=== PATIENT | male | born 1970 | race African-American/Black ===

== ENCOUNTER 2017-01-29 07:33 | Inpatient (IN) | payer OTHER ==
[~2017-01-29] VITALS: Ht 188 cm; Wt 89.4 kg
--- NOTE | 2017-01-29 07:50 | NUR ---
LAC #20 IV ACCESS BLOOD SAMPLE COLLECTED SENT TO LAB
[2017-01-29] MEDS ORDERED: MORPHINE SULFATE INJ 4 MG/ML DISP.SYRIN ONE (07:54)
[2017-01-29 08:00] LABS: BASOPHILS # (AUTO) 0.1 /CMM (0.0-0.2); BASOPHILS % (AUTO) 1.2 % (0.0-2.0); HEMATOCRIT 33 % (39-51); HEMOGLOBIN 10.6 g/dL (13.5-17.5); LYMPHOCYTES % (AUTO) 20.5 % (20.0-44.0); MEAN CORPUSCULAR HEMOGLOBIN 27 PG (26.0-33.0); MEAN CORPUSCULAR HGB CONC 32 g/dl (31.0-36.0); MEAN CORPUSCULAR VOLUME 84 fL (80-96); MONOCYTES # (AUTO) 0.7 /CMM (0.1-1.30); MONOCYTES % (AUTO) 13.2 % (2.0-12.0); NEUTROPHILS # (AUTO) 3.3 /CMM (1.8-8.9); NEUTROPHILS % (AUTO) 64.1 % (43.0-81.0); PLATELET COUNT (AUTO) 244 /CMM (150-450); RED BLOOD CELL COUNT(AUTO) 3.93 MIL/uL (4.5-6.0); WHITE BLOOD COUNT (AUTO) 5.1 K/uL (4.3-11.0)
[2017-01-29] MEDS ORDERED: diphenhydrAMINE HCL 50 MG/ML VIAL IV ONE (08:00)
[2017-01-29] MEDS ORDERED: MORPHINE SULFATE INJ 2 MG/ML DISP.SYRIN IV ONE (08:00)
--- NOTE | 2017-01-29 08:00 | NUR ---
WIND TURBINE SHEET METAL WORKER AT BEDSIDE FOR EVAL
[2017-01-29] MEDS ORDERED: diphenhydrAMINE HCL 50 MG/ML VIAL ONE (08:03)
[2017-01-29 08:10] LABS: CALCIUM, SERUM 8.2 mg/dL (8.5-10.1); CREATININE 0.8 mg/dL (0.6-1.3); POTASSIUM 3.9 mmol/L (3.5-5.1)
[2017-01-29 08:17] LABS: TROPONIN I 0.023 ng/mL (0.00-0.056)
[2017-01-29 08:23] LABS: ALBUMIN 3.2 g/dL (3.4-5.0); BILIRUBIN,DIRECT 0.3 mg/dL (0.0-0.2); BILIRUBIN,TOTAL 0.8 mg/dL (0.2-1.0); TOTAL PROTEIN, SERUM 6.8 g/dL (6.4-8.2)
[2017-01-29 08:40] LABS: INR 1.17 (0.87-1.13); PROTHROMBIN TIME 12.6 SECS (9.5-12.7)
[2017-01-29] MEDS ORDERED: ASPIRIN 325 MG TABLET PO ONE (09:00)
[2017-01-29] MEDS ORDERED: NITROGLYCERIN PACKET 1 GM PACKET TD ONE (09:00)
[2017-01-29] MEDS ORDERED: FUROSEMIDE 40 MG/4 ML VIAL IV ONE (09:00)
[2017-01-29] MEDS ORDERED: FUROSEMIDE 40 MG/4 ML VIAL ONE ×2 (09:02→20:58)
[2017-01-29] MEDS ORDERED: NITROGLYCERIN PACKET 1 GM PACKET ONE (09:03)
[2017-01-29] MEDS ORDERED: ASPIRIN 325 MG TABLET ONE (09:03)
--- NOTE | 2017-01-29 09:04 | NUR ---
[facility] mortgage loan computation clerk Hospitalist called - Dr. Rivas
[2017-01-29] MEDS ORDERED: ALBU18HF2 INH (09:07)
[2017-01-29] MEDS ORDERED: CARV12.52 PO (09:07)
[2017-01-29] MEDS ORDERED: SPIR25TA PO (09:07)
[2017-01-29] MEDS ORDERED: ATOR40TA PO (09:07)
[2017-01-29] MEDS ORDERED: FURO40TA5 PO (09:07)
[2017-01-29] MEDS ORDERED: LISI-603 PO (09:07)
[2017-01-29] MEDS ORDERED: ASPI-991 PO (09:07)
--- NOTE | 2017-01-29 09:25 | NUR ---
admitted to the tele floor ; accepted by Dr. Rivas.
[2017-01-29 10:30] VITALS: BP 138/80
[2017-01-29] MEDS: ASPIRIN EC 81 MG TABLET.DR PO SCH (10:30)
--- NOTE | 2017-01-29 10:42 | NUR ---
ASPIRIN DOSE WAS NOT GIVEN BECAUSE OF PREVIOUS DOSE GIVEN IN THE ER.
[2017-01-29 10:51] LABS: THYROID STIMULATING HORMONE 1.365 uIU/mL (0.358-3.74)
[2017-01-29 11:04] LABS: MAGNESIUM 1.7 mg/dL (1.8-2.4); PHOSPHORUS 3.6 mg/dL (2.5-4.9)
[2017-01-29 12:00] VITALS: BP 134/84
[2017-01-29] MEDS: LISINOPRIL (20MG) 20 MG TABLET PO SCH (12:06)
[2017-01-29] MEDS: POTASSIUM CHLORIDE 20 MEQ TAB.PRT.SR PO SCH ×3 (12:07→14:07)
[2017-01-29] MEDS: FUROSEMIDE 40 MG/4 ML VIAL IV SCH ×3 (13:13→21:03)
[2017-01-29] MEDS ORDERED: ALBUTEROL FS 2.5 MG/3 ML VIAL.NEB NEB PRN (13:30)
--- NOTE | 2017-01-29 14:18 | NUR ---
OK TO SHOWER PER DR. TIRADO. LEADS OFF, SHOWER PROVIDED.
[2017-01-29] MEDS: Magnesium 1GM/D5W 100ML PREMIX 100 ML IV SCH ×2 (15:45→17:12)
[2017-01-29 16:00] VITALS: BP 124/90
[2017-01-29] MEDS: CARVEDILOL 12.5 MG TABLET PO SCH (17:12)
--- NOTE | 2017-01-29 18:33 | NUR ---
PT IS SLEEPING IN BED, NASAL CANNULA ON @2L, SATING AT 98. IV ON RFA INTACT AND PATENT. ALL MEDS GIVEN ORDERED. BED IS IN LOW AND LOCKED POSITION, SIDE RAILS UP X2, AND CALL LIGHT IS IN REACH. WILL ENDORSE TO SENIOR MAJOR GIFTS OFFICER RN FOR CONTINUITY OF CARE.
--- NOTE | 2017-01-29 19:50 | NUR ---
NURSING COORDINATOR NOTE: PATIENT RESTING IN BED, NO ACUTE DISTRESS NOTED. BREATHING EVEN AND UNLABORED, NO SOB NOTED. TELE READING SR 90. IV TO RFA IN PLACE. BED LOCKED AND IN LOWEST POSITION, CALL LIGHT IN REACH. WILL CONTINUE TO MONITOR.
[2017-01-29 20:00] VITALS: BP 122/84
[2017-01-29] MEDS ORDERED: MORPHINE SULFATE INJ 2 MG/ML DISP.SYRIN ONE (20:59)
[2017-01-29] MEDS: MORPHINE SULFATE INJ 2 MG/ML DISP.SYRIN IV PRN (21:04)
--- NOTE | 2017-01-29 21:30 | NUR ---
ELECTRONICS REPAIR TECHNICIAN NOTE: PATIENT LAST DOSE OF LASIX 4OMG IV GIVEN PER MD ORDER. PATIENT ALSO COMPLAINS OF PAIN TO RIGHT HAND 8/10, MORPHINE 2MG IV GIVEN PER MD ORDER. WILL CONTINUE TO MONITOR.
[2017-01-29] MEDS: ATORVASTATIN 40 MG TABLET PO SCH (21:34)
[2017-01-30] MEDS ORDERED: MORPHINE SULFATE INJ 2 MG/ML DISP.SYRIN ONE ×2 (01:30→06:26)
[2017-01-30] MEDS: MORPHINE SULFATE INJ 2 MG/ML DISP.SYRIN IV PRN ×4 (01:36→16:37)
--- NOTE | 2017-01-30 01:45 | NUR ---
GRAIN COMBINER NOTE: PATIENT COMPLAINS OF PAIN TO RIGHT HAND 8/10, MORPHINE 2MG IV GIVEN PER MD ORDER. WILL CONTINUE TO MONITOR.
[2017-01-30 04:45] VITALS: BP 121/77
--- NOTE | 2017-01-30 06:14 | NUR ---
COUNTY SURVEYOR NOTE: PATIENT RESTING IN BED, NO ACUTE DISTRESS NOTED. BREATHING EVEN AND UNLABORED, NO SOB NOTED. TELE READING SR 88. IV TO RFA IN PLACE. BED LOCKED AND IN LOWEST POSITION, CALL LIGHT IN REACH. WILL ENDORSE TO DAY NURSE TO CONTINUE WITH PLAN OF CARE.
--- NOTE | 2017-01-30 06:30 | NUR ---
ROOFING FOREMAN NOTE: PATIENT COMPLAINS OF PAIN TO RIGHT HAND 8/10, MORPHINE 2MG IV GIVEN PER MD ORDER. WILL CONTINUE TO MONITOR.
[2017-01-30 06:39] LABS: EOSINOPHILS # (AUTO) 0.1 /CMM (0.0-0.7); EOSINOPHILS % (AUTO) 1.1 % (0.0-6.0); HEMATOCRIT 34 % (39-51); HEMOGLOBIN 11.1 g/dL (13.5-17.5); LYMPHOCYTES # (AUTO) 1.1 /CMM (0.8-4.8); LYMPHOCYTES % (AUTO) 21.9 % (20.0-44.0); MEAN CORPUSCULAR HEMOGLOBIN 28 PG (26.0-33.0); MEAN CORPUSCULAR HGB CONC 33 g/dl (31.0-36.0); MEAN CORPUSCULAR VOLUME 86 fL (80-96); MONOCYTES # (AUTO) 0.7 /CMM (0.1-1.30); MONOCYTES % (AUTO) 15.5 % (2.0-12.0); NEUTROPHILS # (AUTO) 2.9 /CMM (1.8-8.9); NEUTROPHILS % (AUTO) 60.5 % (43.0-81.0); PLATELET COUNT (AUTO) 254 /CMM (150-450); RDW COEFFICIENT OF VARIATION 20.5 (11.5-15.0); RED BLOOD CELL COUNT(AUTO) 3.98 MIL/uL (4.5-6.0); WHITE BLOOD COUNT (AUTO) 4.8 K/uL (4.3-11.0)
[2017-01-30 07:01] LABS: TROPONIN I 0.026 ng/mL (0.00-0.056)
[2017-01-30 07:03] VITALS: BP 132/74
--- NOTE | 2017-01-30 07:10 | NUR ---
RECEIVED PT IN BED, SLEEPING INTERMITTENTLY. PT IS CONNECTED TO NASAL CANNULA AT 2 L, NO SOB. SAFETY MEASURES ARE MET. WILL CONTINUE TO MONITOR.
[2017-01-30 07:13] LABS: ALBUMIN 3.2 g/dL (3.4-5.0); BILIRUBIN,TOTAL 1.1 mg/dL (0.2-1.0); CALCIUM, SERUM 8.3 mg/dL (8.5-10.1); CREATININE 1.2 mg/dL (0.6-1.3); MAGNESIUM 1.7 mg/dL (1.8-2.4); PHOSPHORUS 3.6 mg/dL (2.5-4.9); POTASSIUM 3.9 mmol/L (3.5-5.1); TOTAL PROTEIN, SERUM 7.1 g/dL (6.4-8.2)
[2017-01-30 08:00] VITALS: BP 132/84
[2017-01-30] MEDS: CARVEDILOL 12.5 MG TABLET PO SCH ×2 (08:25→16:33)
[2017-01-30] MEDS: SPIRONOLACTONE 25 MG TABLET PO SCH (08:25)
[2017-01-30] MEDS: LISINOPRIL (20MG) 20 MG TABLET PO SCH (08:26)
[2017-01-30] MEDS: ASPIRIN EC 81 MG TABLET.DR PO SCH (08:51)
[2017-01-30] MEDS: risperiDONE 1 MG TABLET PO SCH ×2 (11:09→16:32)
[2017-01-30] MEDS ORDERED: Magnesium 1GM/D5W 100ML PREMIX 100 ML IV SCH (11:34)
[2017-01-30] MEDS: FUROSEMIDE 40 MG/4 ML VIAL IV SCH ×3 (12:00→20:00)
[2017-01-30] MEDS ORDERED: POTASSIUM CHLORIDE 20 MEQ TAB.PRT.SR PO SCH (12:00)
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
--- NOTE | 2017-01-30 12:38 | NUR ---
PT REFUSED LASIX MEDICATION. PT WAS INFORMED FOR THE PURPOSE AND BENEFIT OF TAKING LASIX AND STILL REFUSED. DR ROSSI, POWER AND RECOVERY SUPERVISOR WAS NOTIFIED.
[2017-01-30] MEDS: Magnesium 1GM/D5W 100ML PREMIX 100 ML IV SCH ×2 (12:54→13:05)
--- NOTE | 2017-01-30 13:06 | NUR ---
SECOND DOSE OF MAGNESIUM NOT GIVEN, DUPLICATE ORDER. FULL 200ML DOSE WAS GIVEN.
[2017-01-30 16:00] VITALS: BP 113/71
--- NOTE | 2017-01-30 19:30 | NUR ---
MS RN OPENING NOTES: PATIENT IN BED, AOX4, ON O2 AT 3 LPM VIA NC, BREATHING IS EVEN AND UNLABORED, NO WHEEZING OR CRACKLES HEARD ON AUSCULTATION, BUT GARRY LOWER LUNG WELLS ARE DIMINISHED. PIV OVER RFA G 20 INTACT AND PATENT TO FLUSH. PATIENT COMPLAINS OF GENERALIZED PAIN OVER WHOLE BACK AND KNEES, AND JOINTS OF HIS R HAND. EXPLAINED PAIN MEDS SCHEDULE. PROVIDED FOR COMFORT AND SAFETY. WILL CONT TO MONITOR.
--- NOTE | 2017-01-30 19:36 | NUR ---
PT IS SLEEPING INTERMITTENTLY IN BED. RESPIRATIONS EVEN AND UNLABORED. RFA IV INTACT AND PATENT. PT HAS NO COMPLAINTS OF PAIN. BED IS IN LOW AND LOCKED POSITION, SIDE RAILS UP X2, CALL LIGHT IS IN REACH. ENDORSED TO PSYCH RN RN FOR CONTINUITY OF CARE.
[2017-01-30 20:00] VITALS: BP 94/60
--- NOTE | 2017-01-30 20:30 | NUR ---
RN NOTES: PT'S BP IS 94/60, WILL NOT ADMINISTER SCHEDULED LASIX IV AT THIS TIME.
[2017-01-30 21:00] VITALS: BP 91/54
--- NOTE | 2017-01-30 21:02 | NUR ---
RN NOTES: PT'S BP RECHECKED AT 91/54, WILL NOT ADMINISTER SCHEDULED LASIX 40 MG IV SCHEDULED FOR 1999 PM AT THIS TIME.
--- NOTE | 2017-01-30 21:48 | NUR ---
RN NOTES: RECHECKED BP AT 90/54, HR: 84. PATIENT IS AOX4, ON O2 AT 3 LPM VIA NC. WILL CONT TO MONITOR.
[2017-01-30] MEDS: ATORVASTATIN 40 MG TABLET PO SCH (21:52)
[2017-01-31] VITALS: BP 101/61
[2017-01-31] MEDS: MORPHINE SULFATE INJ 2 MG/ML DISP.SYRIN IV PRN (00:10)
--- NOTE | 2017-01-31 00:17 | NUR ---
RN NOTES: PATIENT COMPLAINING OF 9/10 GENERALIZED PAIN OVER UPPER AND LOWER BACK AND ON GARRY KNEES AND JOINTS OF R HAND. RECHECKED BP AT 101/61, HR: 88. ADMINISTERED MORPHINE 2 MG IV AT THIS TIME. PROVIDED FOR COMFORT. WILL CONT TO MONITOR.
--- NOTE | 2017-01-31 05:07 | NUR ---
RN NOTES: PATIENT SHOWERED BY HIMSELF IN BATHROOM WITHOUT CALLING FOR HELP, AND ACCIDENTALLY PULLED OUT HIS IV. REINSERTED NEW IV LINE OVER R FOREARM, G22. ADVISED PATIENT THAT HE MUST CALL FOR ASSISTANCE NEXT TIME HE WANTS TO BATHE. PATIENT VERBALIZED UNDERSTANDING.
[2017-01-31 06:16] LABS: BASOPHILS % (AUTO) 0.7 % (0.0-2.0); EOSINOPHILS # (AUTO) 0.1 /CMM (0.0-0.7); EOSINOPHILS % (AUTO) 1.6 % (0.0-6.0); HEMATOCRIT 32 % (39-51); HEMOGLOBIN 10.3 g/dL (13.5-17.5); LYMPHOCYTES % (AUTO) 22.1 % (20.0-44.0); MEAN CORPUSCULAR HEMOGLOBIN 28 PG (26.0-33.0); MEAN CORPUSCULAR HGB CONC 32 g/dl (31.0-36.0); MEAN CORPUSCULAR VOLUME 85 fL (80-96); MONOCYTES # (AUTO) 0.6 /CMM (0.1-1.30); NEUTROPHILS # (AUTO) 2.8 /CMM (1.8-8.9); NEUTROPHILS % (AUTO) 62.6 % (43.0-81.0); PLATELET COUNT (AUTO) 212 /CMM (150-450); RDW COEFFICIENT OF VARIATION 20.3 (11.5-15.0); RED BLOOD CELL COUNT(AUTO) 3.74 MIL/uL (4.5-6.0); WHITE BLOOD COUNT (AUTO) 4.5 K/uL (4.3-11.0)
[2017-01-31 06:25] LABS: ALBUMIN 2.7 g/dL (3.4-5.0); BILIRUBIN,TOTAL 0.7 mg/dL (0.2-1.0); CALCIUM, SERUM 8.3 mg/dL (8.5-10.1); MAGNESIUM 1.7 mg/dL (1.8-2.4); PHOSPHORUS 3.6 mg/dL (2.5-4.9); POTASSIUM 4.1 mmol/L (3.5-5.1); TOTAL PROTEIN, SERUM 6.2 g/dL (6.4-8.2)
--- NOTE | 2017-01-31 06:46 | NUR ---
RN NOTES: PHOTOVOLTAIC INSTALLATION TECHNICIAN AT BEDSIDE TO TAKE CHEST XRAY.
--- NOTE | 2017-01-31 06:48 | NUR ---
MS RN CLOSING NOTES: PATIENT IN BED, AOX4, ON O2 AT 3 LPM VIA NC, BREATHING EVEN AND UNLABORED. PATIENT STILL COMPLAINS OF GENERALIZED PAIN OVER BACK SCALED AT 5/10. DUE MEDS GIVEN. PROVIDED FOR COMFORT AND SAFETY. NO ACUTE CHANGE IN CONDITION NOTED THROUGH SHIFT. WILL ENDORSE TO AM RN FOR CARY.
[2017-01-31 08:00] VITALS: BP 110/78
[2017-01-31] MEDS: ASPIRIN EC 81 MG TABLET.DR PO SCH (08:48)
[2017-01-31] MEDS: SPIRONOLACTONE 25 MG TABLET PO SCH (08:48)
[2017-01-31] MEDS: risperiDONE 1 MG TABLET PO SCH (08:48)
[2017-01-31] MEDS ORDERED: LISINOPRIL (10MG) 10 MG TABLET PO SCH (09:00)
[2017-01-31] MEDS ORDERED: CARVEDILOL 6.25 MG TABLET PO SCH (09:00)
[2017-01-31] MEDS ORDERED: FUROSEMIDE 40 MG/4 ML VIAL IV SCH (09:00)
[2017-01-31 09:01] VITALS: BP 118/80
[2017-01-31] MEDS: Magnesium 1GM/D5W 100ML PREMIX 100 ML IV SCH ×2 (09:04→10:54)
--- NOTE | 2017-01-31 09:43 | NUR ---
SHYAM reviewed and faxed clinicals to Intake at [facility] . SHYAM contacted [facility] and spoke to Lucy in intake informing her that SHYAM faxed clinicals. Lucy informed SHYAM she will review the clinicals and follow up with SHYAM.
--- NOTE | 2017-01-31 12:27 | NUR ---
RN Notes Spoke with patient together with psychotherapist social worker and explained to him that he is already discharge and stable medically to go home. He said he wants 4 tokens to reach to the red line. Informed him that 4 tokens will be provided and patient agreed. Also asked him if he feels hurting himself or other people and he said no. That he is feeling okay now. Patient able to communicate well. Appears calm and relax eating his lunch.
--- NOTE | 2017-01-31 13:05 | NUR ---
RN Notes Patient refused due med lasix 40 mg IVP. "I don't want it now because the bus won't stop if I want to pee. " Patient also insisted to go home at this time. Discharge instruction given on home medication and follow up with primary care physician in 1 week verbalized understanding. IV access removed and secured site with dressing. Prescription for home medication given to patient. Discharge paper signed. Refused body check for now. Belongings were accounted with patient and claimed nothing is missing. 4 tokens given. Informed CN Neyda patient does not want to removed ID band. Per CN Coating Line Worker Karolyn will meet the patient at the [facility]. Left hospital ambulatory in stable condition.
--- NOTE | 2017-01-31 13:55 | NUR ---
RN Notes Per NAVEEN Faye, [employer] Tuber Machine Operator Ashleigh with 2 security guards approach patient to take out the ID band but patient doesn't agree and insisted to leave.
== END 2017-01-31 13:00 | disposition home or self-care (01) | DRG 194 ==
LOC: ER 07:40 → TELE 10:00 → MED 01-30 12:29
PROVIDERS: ADMIT Internal Medicine; ATTEND Internal Medicine
DX: I11.0 Hypertensive heart disease with heart failure (principal); J96.20 Acute and chronic respiratory failure, unspecified whether with hypoxia or hypercapnia; J90 Pleural effusion, not elsewhere classified; F31.64 Bipolar disorder, current episode mixed, severe, with psychotic features; F17.200 Nicotine dependence, unspecified, uncomplicated; D50.9 Iron deficiency anemia, unspecified; I50.23 Acute on chronic systolic (congestive) heart failure; E83.42 Hypomagnesemia; J44.9 Chronic obstructive pulmonary disease, unspecified; G89.4 Chronic pain syndrome; M06.9 Rheumatoid arthritis, unspecified; Z59.0 Homelessness; Z79.899 Other long term (current) drug therapy; F19.10 Other psychoactive substance abuse, uncomplicated
CPT/HCPCS: 36415; 71010-TC; 80048-TC; 80053-TC; 80061-TC; 80076-TC; 82306; 82728-TC; 83540-TC; 83735-TC; 83880; 84100-TC; 84439-TC; 84443-TC; 84484-TC; 85025-TC; 85730-TC; 87081-TC; 93307-TC; 94799-TC; 97001-TC; A4606; J1200; J1940; J2270; J3475; Z7610

== ENCOUNTER 2017-02-20 09:25 | Inpatient (IN) | payer OTHER ==
[~2017-02-20] VITALS: Ht 195.6 cm; Wt 89.8 kg
[~2017-02-20 09:25] MED LIST: ALBU18HF2 INH; ASPI-991 PO; FURO40TA5 PO; SPIR25TA PO
--- NOTE | 2017-02-20 09:40 | NUR ---
PATIENT BIB RA C/O CHEST PAIN AND SOB. PATIENT IS A/OX 4. BREATHING EVEN AND UNLABORED ON ROOM AIR. PATIENTS VITALS REMAIN STABLE. HAS IV ON LEFT HAND, 18 G. SAFETY AND COMFORT MEASURES IN PLACE. AWAITING MD ORDERS.
[2017-02-20 09:49] LABS: BASOPHILS % (AUTO) 0.8 % (0.0-2.0); EOSINOPHILS % (AUTO) 0.6 % (0.0-6.0); HEMATOCRIT 32 % (39-51); LYMPHOCYTES # (AUTO) 0.9 /CMM (0.8-4.8); LYMPHOCYTES % (AUTO) 22.9 % (20.0-44.0); MEAN CORPUSCULAR HEMOGLOBIN 26 PG (26.0-33.0); MEAN CORPUSCULAR HGB CONC 31 g/dl (31.0-36.0); MEAN CORPUSCULAR VOLUME 84 fL (80-96); MONOCYTES # (AUTO) 0.6 /CMM (0.1-1.30); MONOCYTES % (AUTO) 14.9 % (2.0-12.0); NEUTROPHILS # (AUTO) 2.3 /CMM (1.8-8.9); NEUTROPHILS % (AUTO) 60.8 % (43.0-81.0); PLATELET COUNT (AUTO) 252 /CMM (150-450); RDW COEFFICIENT OF VARIATION 19.3 (11.5-15.0); RED BLOOD CELL COUNT(AUTO) 3.81 MIL/uL (4.5-6.0); WHITE BLOOD COUNT (AUTO) 3.8 K/uL (4.3-11.0)
--- NOTE | 2017-02-20 09:55 | NUR ---
BLOOD DRAWN AND SENT TO LAB.
[2017-02-20 09:59] LABS: CALCIUM, SERUM 8.4 mg/dL (8.5-10.1)
[2017-02-20 10:02] LABS: INR 1.32 (0.87-1.13); PROTHROMBIN TIME 13.9 SECS (9.5-12.7)
[2017-02-20 10:06] LABS: TROPONIN I 0.029 ng/mL (0.00-0.056)
[2017-02-20 10:18] LABS: ALBUMIN 3.2 g/dL (3.4-5.0); BILIRUBIN,DIRECT 0.6 mg/dL (0.0-0.2); BILIRUBIN,TOTAL 1.5 mg/dL (0.2-1.0); TOTAL PROTEIN, SERUM 6.6 g/dL (6.4-8.2)
--- NOTE | 2017-02-20 10:19 | NUR ---
PATIENT ASSIGNED TO TELE 321-[address] LACKEY, RN TO RN REPORT CAN BE GIVEN TO JEANNA
--- NOTE | 2017-02-20 10:27 | NUR ---
report given to Yolande PETTIT for continuity of care in Telemetry
--- NOTE | 2017-02-20 10:58 | NUR ---
PT TRANSFERRED TO TELE USING ACLS PROTOCOL
[2017-02-20 11:15] VITALS: BP 133/99
[2017-02-20] MEDS ORDERED: ONDANSETRON HCL/PF 4 MG/2 ML VIAL IVP PRN (11:30)
[2017-02-20] MEDS ORDERED: HYDROCODONE/APAP 5/325MG 1 EACH TABLET PO PRN (11:30)
[2017-02-20] MEDS ORDERED: Z GUARD REMEDY 2 OZ OINT TP PRN (11:30)
[2017-02-20] MEDS ORDERED: FUROSEMIDE 20 MG/2 ML VIAL IV ONE (11:30)
[2017-02-20] MEDS ORDERED: ZOLPIDEM TARTRATE 5 MG TABLET PO PRN (11:30)
[2017-02-20] MEDS ORDERED: ACETAMINOPHEN 325 MG TABLET PO PRN (11:30)
[2017-02-20] MEDS ORDERED: MAGNESIUM HYDROXIDE 30 ML UDC PO PRN (11:30)
[2017-02-20] MEDS ORDERED: MAG HYDROX/AL HYDROX/SIMETH 30 ML UDC PO PRN (11:30)
[2017-02-20] MEDS: CARVEDILOL 3.125 MG TABLET PO SCH ×2 (12:13→21:29)
--- NOTE | 2017-02-20 12:25 | NUR ---
RANCH RIDER NOTE PATIENT BECAME AGITATED/ANXIOUS AND PULLED OUT HIS IV. PRESSURE DRESSING APPLIED. NO BLEEDING AT THIS TIME. NEW IV STARTED ON L UPPER ARM. NEW IV PATENT AND INTACT. PATIENT TOLERATED PROCEDURE WELL.
[2017-02-20 12:30] VITALS: BP 133/99
[2017-02-20] MEDS: ALBUTEROL FS 2.5 MG/3 ML VIAL.NEB NEB PRN ×2 (13:46→21:27)
--- NOTE | 2017-02-20 14:30 | NUR ---
SURG NURSE NOTE MD AT BEDSIDE DR LACKEY AT THE BEDSIDE. PATIENT IS SOB AT REST. PLACED ON OXYGEN 2-4L TO MAINTAIN OPTIMAL SATURATION AND COMFORT. NO SEDATIVES/HYPNOTICS/ANXIOLYTICS/NARCOTICS (ANY AGENTS DEPRESSING RESPIRATORY EFFORT) PER DR. LACKEY'S ORDER. PATIENT IS RESTING IN BED ON 3L 02 VIA NASAL CANULA. SP02 95%.
--- NOTE | 2017-02-20 15:05 | NUR ---
SOCIAL WORKER AIDE NOTES PATIENT CONTINUES TO GET OUT OF BED BY HIMSELF EVEN WITH MULTIPLE EDUCATION SESSIONS. PATIENT IS LETHARGIC AND COMPLAINING OF DIZZINESS. PATIENT IS NON COMPLIANT WITH THIS. BED ALARM ON. PATIENT IS IN RESTROOM AT THIS TIME. BOREMATIC MACHINE OPERATOR AT SIDE FOR SAFETY
--- NOTE | 2017-02-20 15:16 | NUR ---
ALMOND HULLER NOTES WHEN PATIENT SLEEPING HE IS NOTED TO HAVE SLEEP EPISODES OF APNEA UP TO [address] LACKEY AND PER MD ORDER ABG STAT FOR PATIENT. DURING PERIODS OF APNEA PATIENT WAS DESATTING LOWEST 81% WHILE ON 4LPM OF NC. PATIENT MOUTH BREATHER. ONCE PATIENT BREATHS O2 GOES BACK UP TO 94%. ORDERED CONTINUOUS PULSE OX FOR PATIENT
--- NOTE | 2017-02-20 15:29 | NUR ---
DIRECTOR OF SAFETY NOTES RT SASCHA AT BEDSIDE FOR ABG AND CONTINUOUS PULSE OX SET UP
[2017-02-20 15:47] LABS: ABG BASE EXCESS -4.4 mmol/L; ABG OXYGEN SATURATION 90.9 % (92.0-98.5); ABG PCO2 39.2 mmHg (35.0-45.0); ABG PH 7.344 (7.350-7.450); AaDO2 31.8 mmHg; MetHb 0.4 % (0.0-1.5); O2Hb 89.6 % (94.0-97.0); SITE, ABG Right Radial; VENT MODE, BG ROOM AIR
--- NOTE | 2017-02-20 15:51 | NUR ---
HEARING AND SPEECH ASSISTANT NOTES NOTIFIED DR LACKEY OF PATIENT ABG RESULTS MESSAGE LEFT
[2017-02-20 16:00] VITALS: BP 146/92
[2017-02-20] MEDS ORDERED: FUROSEMIDE 40 MG/4 ML VIAL IV SCH (17:00)
--- NOTE | 2017-02-20 19:27 | NUR ---
GIS SOFTWARE ENGINEER CLOSING NOTE PATIENT IS SLEEPING IN BED. NOLBERTO IN LOCKED POSITION, HIGH FAJARDO'S, SIDE RAILS UP X2. SP02 97% ON 2L 02 VIA NASAL CANULA. ALL NEEDS MET. PATIENT STABLE, DENIES PAIN/CHEST PAIN/DISCOMFORT. WILL ENDORSE TO ARABIC TRANSLATOR FOR CARY
--- NOTE | 2017-02-20 19:40 | NUR ---
ROAD SIGN INSTALLER NOTE: PATIENT RESTING IN BED, NO ACUTE DISTRESS NOTED. BREATHING EVEN AND UNLABORED, NO SOB NOTED. TELE READING SINUS TACHY 110. BED LOCKED AND IN LOWEST POSITION, CALL LIGHT IN REACH. WILL CONTINUE TO MONITOR.
[2017-02-20 20:00] VITALS: BP 100/66
[2017-02-21] VITALS: BP 113/68
--- NOTE | 2017-02-21 03:00 | NUR ---
ARTIFICIAL BREEDING TECHNICIAN NOTE: PATIENT RESTING IN BED, NO ACUTE DISTRESS NOTED. PATIENT KEEPS REMOVING TELE LEADS, EXPLAINED IMPORTANCE OF KEEPING TELE MONITOR ON TO MONITOR HEART RATE, BUT CONTINUE TO PULL OFF LEADS. WILL KEEP TELE ON STAND BY AND TRY AGAIN LATER TO PUT ON TELE MONITOR. WILL CONTINUE TO MONITOR.
--- NOTE | 2017-02-21 06:10 | NUR ---
CAMPUS CHAPLAIN NOTE: PATIENT RESTING IN BED, NO ACUTE DISTRESS NOTED. BREATHING EVEN AND UNLABORED, NO SOB NOTED. TELE READING SINUS TACHY 105. BED LOCKED AND IN LOWEST POSITION, CALL LIGHT IN REACH. WILL ENDORSE TO DAY NURSE TO CONTINUE WITH PLAN OF CARE.
[2017-02-21 06:58] LABS: EOSINOPHILS # (AUTO) 0.1 /CMM (0.0-0.7); EOSINOPHILS % (AUTO) 1.4 % (0.0-6.0); HEMATOCRIT 38 % (39-51); LYMPHOCYTES # (AUTO) 1.1 /CMM (0.8-4.8); LYMPHOCYTES % (AUTO) 22.7 % (20.0-44.0); MEAN CORPUSCULAR HEMOGLOBIN 27 PG (26.0-33.0); MEAN CORPUSCULAR HGB CONC 32 g/dl (31.0-36.0); MEAN CORPUSCULAR VOLUME 85 fL (80-96); MONOCYTES # (AUTO) 0.7 /CMM (0.1-1.30); MONOCYTES % (AUTO) 13.9 % (2.0-12.0); PLATELET COUNT (AUTO) 300 /CMM (150-450); RDW COEFFICIENT OF VARIATION 20.6 (11.5-15.0)
[2017-02-21 07:15] LABS: CALCIUM, SERUM 8.4 mg/dL (8.5-10.1); MAGNESIUM 1.6 mg/dL (1.8-2.4); PHOSPHORUS 2.9 mg/dL (2.5-4.9); POTASSIUM 4.2 mmol/L (3.5-5.1)
--- NOTE | 2017-02-21 07:51 | NUR ---
RN OPENING NOTES PATIENT IS RESTING COMFORTABLY IN BED WITH EYES OPEN. PATIENT IS EATING AT THIS TIME. PATIENT IS A/OX4. PATIENT IS SATURATING ADEQUATELY ON 3L/MIN. PATIENT IS COMPLAINING OF BACKPAIN AND LEG PAIN AT THIS TIME. WILL IMPLEMENT APPROPRIATE INTERVENTIONS. RESPIRATIONS APPEAR EVEN AND UNLABORED. NO S/S OF ACUTE DISTRESS. TELE READING SHOWS SINUS TACHYCARDIA. BED LOCKED IN THE LOWEST POSITION AT THIS TIME. CALL LIGHT WITH IN REACH. WILL CONTINUE TO MONITOR, ASSESS, AND EDUCATE PATIENT THROUGHOUT SHIFT.
[2017-02-21 08:00] VITALS: BP 112/64
[2017-02-21] MEDS: ASPIRIN EC 81 MG TABLET.DR PO SCH (08:29)
[2017-02-21] MEDS: SPIRONOLACTONE 25 MG TABLET PO SCH (08:29)
[2017-02-21] MEDS: PANTOPRAZOLE 40 MG TABLET.DR PO SCH (08:29)
[2017-02-21] MEDS: CARVEDILOL 3.125 MG TABLET PO SCH ×2 (08:29→20:35)
--- NOTE | 2017-02-21 08:33 | NUR ---
RN NOTES FOR NON ADMIN REASON PATIENT BP 112/[address] IGNACIO AWARE[address] PER OK TO HOLD COREG GIVE ALDACTONE AND LASIX ORDER. WILL AWAIT PHARMACY APPROVAL FOR LASIX. WILL CONTINUE TO MONITOR AND ASSESS PATIENT.
[2017-02-21] MEDS: FUROSEMIDE 40 MG/4 ML VIAL IV SCH ×2 (08:57→17:17)
[2017-02-21] MEDS: Magnesium 1GM/D5W 100ML PREMIX 100 ML IV SCH ×2 (10:20→13:05)
[2017-02-21] MEDS ORDERED: Magnesium 1GM/D5W 100ML PREMIX 100 ML IV SCH (10:30)
--- NOTE | 2017-02-21 11:52 | NUR ---
Social service consult requested by Dr. Herrera for homelessness. Pt. is a 46 year old -Bhut[place] male who was admitted to [facility] for chest pain. SW is familiar with pt. from a previous admission on 01/29/17. Pt. recognized SW from previous admission and apologized for his behavior during last admission. Pt. is alert and oriented x 4. Pt. has all his belongings bedside. Pt. states he has a heel caser named Verona Caraballo from [employer] [facility] who is assisting him in finding housing. Pt. states he would like to be discharged to [facility] located at [address] [place] [address] in [place] once medically cleared. Pt. will require assistance with transportation. Pt. denies suicidal/homicidal ideations and visual/auditory hallucinations at this time. Pt. does not have an advance directive of DPOA and makes his own decisions. No other social service needs are required at this time. SW is available if needed. Homeless Patient Waiver Form to be signed by pt. prior to discharge.
[2017-02-21 12:00] VITALS: BP 117/81
--- NOTE | 2017-02-21 12:04 | NUR ---
RN NOTES IV ERNESTINE 22 DISLODGED DURING MAGNESIUM INFUSION. NEW IV PLACED IN THE RIGHT FOREARM. 22G. ONE ATTEMPT. IV ASSESS PATENT AND INTACT. NO S/S OF INFILTRATION. PATIENT TOLERATED WELL. MG INFUSION CONTINUED. WILL CONTINUE TO MONITOR.
[2017-02-21 16:00] VITALS: BP 119/63
--- NOTE | 2017-02-21 19:15 | NUR ---
WOODENWARE ASSEMBLER NOTES RECEIVED ON BED A/O X4,BREATHING REGULAR,NOT IN NAY FORM OF DISTRESS.CLAIMED ITS FREEZING,WARM BLANKET PROVIDED/SALINE LOCK RFA INTACT AND PATENT.TELE SR 90.DENIES CHEST DISCOMFORTS.CALL LIGHT IN REACH,NEEDS ANTICIPATED.
--- NOTE | 2017-02-21 19:23 | NUR ---
RN CLOSING NOTES PATIENT RESTING IN BED COMFORTABLY. RESPIRATIONS EVEN AND UNLABORED. PATIENT ON O2 SATURATING ADEQUATELY. ALL NEEDS MET. ALL MEDS GIVEN APPROPRIATE. BED LOCKED IN THE LOWEST POSITION. CALL LIGHT WITHIN REACH. REPORT GIVEN TO NIGHT RN FOR CONTINUATION OF CARE.
[2017-02-21 20:00] VITALS: BP 130/77
[2017-02-21 20:06] VITALS: BP 130/77
--- NOTE | 2017-02-21 20:35 | NUR ---
MIDDLE SCHOOL TEACHER NOTES AMBIEN 5MG PO GIVEN PER PATIENT DEMAND.WAS ADVISED THAT ITS DUE AT 10PM,BUT HE INSISTED.
--- NOTE | 2017-02-21 20:38 | NUR ---
CRISIS INTERVENTION COUNSELOR NOTES DUE COREG 3.125MG,1TAB PO ORDERED,BP 130/77 HR-100
[2017-02-22] VITALS: BP 100/63
--- NOTE | 2017-02-22 | NUR ---
HVAC TECHNICIAN NOTES SOUND ASLEEP FROM THOM.VITAL SIGNS UNABLE TO CHECK THIS TIME
--- NOTE | 2017-02-22 00:58 | NUR ---
RADAR SCIENTIST NOTES C/O MILD PAIN RIGHT ARM.MEDICATED WITH TYLENOL 650MG PO ORDERED FOR MILD PAIN
[2017-02-22 04:00] VITALS: BP 100/63
--- NOTE | 2017-02-22 04:00 | NUR ---
TRAILER TANK TRUCK DRIVER NOTES REFUSED TELE MONITOR,TOOK IT OFF.
--- NOTE | 2017-02-22 06:30 | NUR ---
BALANCE ASSEMBLER NOTES AWAKE,AND HE WANTS TO TAKE SHOWER,EXPLAINED RISK.WAS ADVISED TO CALL DOCTOR FIRST FOR ORDER,NON COMPLIANT.INSISTED TO TAKE SHOWER.
[2017-02-22 06:48] LABS: BASOPHILS % (AUTO) 0.1 % (0.0-2.0); EOSINOPHILS # (AUTO) 0.1 /CMM (0.0-0.7); EOSINOPHILS % (AUTO) 2.3 % (0.0-6.0); HEMATOCRIT 33 % (39-51); HEMOGLOBIN 11.1 g/dL (13.5-17.5); LYMPHOCYTES % (AUTO) 20.6 % (20.0-44.0); MEAN CORPUSCULAR HEMOGLOBIN 28 PG (26.0-33.0); MEAN CORPUSCULAR HGB CONC 33 g/dl (31.0-36.0); MEAN CORPUSCULAR VOLUME 85 fL (80-96); MONOCYTES # (AUTO) 0.7 /CMM (0.1-1.30); MONOCYTES % (AUTO) 14.6 % (2.0-12.0); NEUTROPHILS % (AUTO) 62.4 % (43.0-81.0); PLATELET COUNT (AUTO) 256 /CMM (150-450); RDW COEFFICIENT OF VARIATION 20.1 (11.5-15.0); RED BLOOD CELL COUNT(AUTO) 3.94 MIL/uL (4.5-6.0); WHITE BLOOD COUNT (AUTO) 4.9 K/uL (4.3-11.0)
[2017-02-22 06:58] LABS: CALCIUM, SERUM 8.2 mg/dL (8.5-10.1); CREATININE 1.1 mg/dL (0.6-1.3); MAGNESIUM 1.4 mg/dL (1.8-2.4); PHOSPHORUS 3.2 mg/dL (2.5-4.9); POTASSIUM 3.4 mmol/L (3.5-5.1)
--- NOTE | 2017-02-22 07:00 | NUR ---
AIRFIELD ENGINEER OFFICER NOTES DENIES CHEST PAIN,WANTS TO EAT WHEN EVER HE'S AWAKE.PROBABLY NEEDS PSYCH CONSULT.IN NO ACUTE DISTRESS.WILL ENDORSE TO DAY NURSE FOR CARY.
[2017-02-22 08:00] VITALS: BP 121/72
--- NOTE | 2017-02-22 08:00 | NUR ---
RN OPENING NOTES PATIENT IS RESTING COMFORTABLY IN BED WITH EYES OPEN. PATIENT IS A/OX4. PATIENT IS SATURATING ADEQUATELY ON 3L/MIN. PATIENT HAS NO COMPLAINTS OF PAIN AT THIS TIME. DENIES CHEST PAIN. RESPIRATIONS APPEAR EVEN AND UNLABORED. NO S/S OF ACUTE DISTRESS. DENIES SOB. TELE READING SHOWS SINUS RHYTHM 85. BED LOCKED IN THE LOWEST POSITION AT THIS TIME SIDE RAILS UP X2. CALL LIGHT WITH IN REACH. WILL CONTINUE TO MONITOR, ASSESS, AND EDUCATE PATIENT THROUGHOUT SHIFT.
[2017-02-22] MEDS: FUROSEMIDE 40 MG/4 ML VIAL IV SCH (08:28)
[2017-02-22] MEDS: SPIRONOLACTONE 25 MG TABLET PO SCH (08:29)
[2017-02-22] MEDS: PANTOPRAZOLE 40 MG TABLET.DR PO SCH (08:29)
[2017-02-22] MEDS: ASPIRIN EC 81 MG TABLET.DR PO SCH (08:29)
[2017-02-22] MEDS: CARVEDILOL 3.125 MG TABLET PO SCH (08:34)
--- NOTE | 2017-02-22 08:38 | NUR ---
RN NOTES NON-ADMIN REASON HELD PATIENT COREG. PATIENT RECEIVED 60MG OF LASIX AND ALDACTONE. WILL CONTINUE TO MONITOR AND REASSESS PATIENT.
--- NOTE | 2017-02-22 10:05 | NUR ---
RN MS NOTES PT OUT OF BED, ASKING FOR MORE FOOD, DOES NOT WANT TO HAVE SNACKS FROM THE FLOOR, DIETARY SENT HIM SNACKS BUT PT REFUSED, STARTING TO GET AGITATED, PT PULLED OUT HIS IV, DR. CID INFORMED, DIET ORDER CHANGED TO REGULAR, PT GIVEN MORE FOOD BY DIETARY, PT IN HIS ROOM, CALM AT THIS TIME, WILL CONTINUE TO MONITOR PT BEHAVIOR.
--- NOTE | 2017-02-22 10:55 | NUR ---
SHYAM met with pt. bedside to discuss discharge plan. Pt. confirmed with SHYAM that he will be going to the [facility] located at [address] [place] [address]. Pt. requested for bus tokens to get to his location. SW informed pt. she will inform WILVER Flores to give pt. 2 bus tokens. SHYAM spoke with pt's WILVER Flores and gave her the Homeless Patient Waiver Form to have pt. sign prior to discharge and informed her that pt. will require two bus tokens upon discharge.
[2017-02-22] MEDS ORDERED: POTASSIUM CHLORIDE 20 MEQ POWDER PACKET PO ONE (11:00)
[2017-02-22] MEDS ORDERED: LISINOPRIL (5MG) 5 MG TABLET PO SCH (11:30)
--- NOTE | 2017-02-22 11:30 | NUR ---
RN NOTES NEW IV PLACED. PATIENT TOLERATED WELL. ONE ATTEMPT. RIGHT FOREARM 22 G. NO S/S OF INFILTRATION. PATENT AND INTACT. WILL CONTINUE TO MONITOR
[2017-02-22] MEDS: Magnesium 1GM/D5W 100ML PREMIX 100 ML IV SCH ×4 (11:35→15:46)
--- NOTE | 2017-02-22 11:44 | NUR ---
RN NOTES HELD BP MED LISINOPRIL. PATIENT BP RECHECKED BEFORE ADMINISTRATED. PATIENT BP 113/67. WILL CONTINUE TO MONITOR. PATIENT VERBALIZED UNDERSTANDING.
[2017-02-22] MEDS ORDERED: FURO40TA5 PO (11:48)
[2017-02-22] MEDS ORDERED: LISI5TAB45 PO (11:48)
[2017-02-22] MEDS ORDERED: CARV3.12 PO (11:48)
[2017-02-22 12:00] VITALS: BP 113/67
[2017-02-22] MEDS ORDERED: POTASSIUM CHLORIDE 20 MEQ TAB.PRT.SR PO ONE (12:00)
--- NOTE | 2017-02-22 15:49 | NUR ---
RN NOTES PATIENT RECEIVING FINAL DOSE OF MAGNESIUM IV. WILL BE DISCHARGED AFTER REPLACEMENT COMPLETE.
[2017-02-22] MEDS ORDERED: FUROSEMIDE 40 MG TABLET PO SCH (17:00)
--- NOTE | 2017-02-22 17:50 | NUR ---
RN CLOSING NOTES PATIENT DISCHARGED IN STABLE CONDITION. PATIENT DENIES SOB. PATIENT HAS NO S/S OF ACUTE DISTRESS. RESPIRATIONS EVEN AND UNLABORED. PATIENT DENIES CHEST PAIN. IV AND TELE D/C'D. ALL BELONGINGS ACCOUNTED FOR. DISCHARGE EDUCATION GIVEN. EXITCARE COMPLETED. PATIENT TO CONTINUE BP MEDS PRESCRIBED. PATIENT TO FOLLOW UP WITH PCP. INT HE EVENT OF AN EMERGENCY, PATIENT TO RETURN TO PATIENT DISCHARGED TO STREET. HOMELESS WAIVER SIGNED. BUS TOKENS GIVEN. DIRECTIONS GIVEN. ALL APPROPRIATE MEDS GIVE. ALL NEEDS MED.
== END 2017-02-22 17:30 | disposition home or self-care (01) | DRG 194 ==
LOC: ER 09:31 → TELE 10:50
PROVIDERS: ADMIT Internal Medicine; ATTEND Internal Medicine
DX: I13.2 Hypertensive heart and chronic kidney disease with heart failure and with stage 5 chronic kidney disease, or end stage renal disease (principal); J96.01 Acute respiratory failure with hypoxia; S72.001A Fracture of unspecified part of neck of right femur, initial encounter for closed fracture; D68.9 Coagulation defect, unspecified; N18.6 End stage renal disease; J90 Pleural effusion, not elsewhere classified; I50.23 Acute on chronic systolic (congestive) heart failure; I42.9 Cardiomyopathy, unspecified; I27.2 Other secondary pulmonary hypertension; E83.42 Hypomagnesemia; I48.2 Chronic atrial fibrillation; R07.9 Chest pain, unspecified; Z88.5 Allergy status to narcotic agent; Z99.2 Dependence on renal dialysis; Z98.61 Coronary angioplasty status; Z95.1 Presence of aortocoronary bypass graft; Z91.19 Patient's noncompliance with other medical treatment and regimen; Z87.891 Personal history of nicotine dependence; Z59.0 Homelessness; K21.9 Gastro-esophageal reflux disease without esophagitis; I25.118 Atherosclerotic heart disease of native coronary artery with other forms of angina pectoris; D63.8 Anemia in other chronic diseases classified elsewhere; E78.5 Hyperlipidemia, unspecified; F20.9 Schizophrenia, unspecified; F31.9 Bipolar disorder, unspecified; W19.XXXA Unspecified fall, initial encounter; Y92.89 Other specified places as the place of occurrence of the external cause
CPT/HCPCS: 36415; 36600; 71010-TC; 80048-TC; 80061-TC; 80076-TC; 83735-TC; 83880; 84100-TC; 84484-TC; 85025-TC; 85730-TC; 94799-TC; A4606; J1940; J3475; J7050; Z7610

== ENCOUNTER 2017-07-13 01:50 | Emergency (ER) | payer OTHER ==
[~2017-07-13] VITALS: Ht 182.9 cm; Wt 81.6 kg
[~2017-07-13 01:50] MED LIST changes: +ASPI-1152 PO; -ASPI-991 PO; +CARV3.12 PO; +LISI5TAB45 PO
[2017-07-13 01:52] VITALS: BP 118/81
[2017-07-13 04:08] LABS: BASOPHILS % (AUTO) 0.7 % (0.0-2.0); EOSINOPHILS # (AUTO) 0.1 /CMM (0.0-0.7); EOSINOPHILS % (AUTO) 1.8 % (0.0-6.0); HEMATOCRIT 31 % (39-51); HEMOGLOBIN 10.1 g/dL (13.5-17.5); LYMPHOCYTES # (AUTO) 1.2 /CMM (0.8-4.8); LYMPHOCYTES % (AUTO) 26.1 % (20.0-44.0); MEAN CORPUSCULAR HEMOGLOBIN 27 PG (26.0-33.0); MEAN CORPUSCULAR HGB CONC 33 g/dl (31.0-36.0); MEAN CORPUSCULAR VOLUME 82 fL (80-96); MONOCYTES # (AUTO) 0.8 /CMM (0.1-1.30); MONOCYTES % (AUTO) 17.4 % (2.0-12.0); NEUTROPHILS # (AUTO) 2.6 /CMM (1.8-8.9); PLATELET COUNT (AUTO) 169 /CMM (150-450); RDW COEFFICIENT OF VARIATION 17.5 (11.5-15.0); RED BLOOD CELL COUNT(AUTO) 3.79 MIL/uL (4.5-6.0); WHITE BLOOD COUNT (AUTO) 4.7 K/uL (4.3-11.0)
[2017-07-13 04:38] LABS: CALCIUM, SERUM 8.7 mg/dL (8.5-10.1); CARBON DIOXIDE 25 mmol/L (21-32); CHLORIDE 106 mmol/L (98-107); CREATININE 0.9 mg/dL (0.6-1.3); GLUCOSE 111 mg/dL (74-106); POTASSIUM 4.2 mmol/L (3.5-5.1); SODIUM SERUM 139 mmol/L (136-145); UREA NITROGEN, BLOOD 21 mg/dL (7-18)
[2017-07-13 04:44] LABS: INR 0.99 (0.87-1.13); PROTHROMBIN TIME 10.3 SECS (9.5-12.7)
[2017-07-13 04:48] LABS: TROPONIN I < 0.017 ng/mL (0.00-0.056)
--- NOTE | 2017-07-13 05:53 | NUR ---
PT OK TO DISCHARGE PER DR BRIAN. Patient discharged to home in stable condition. Written and verbal after care instructions given. Patient uncooperative upon discharge. Pt escorted outside with security.
== END 2017-07-13 05:55 | disposition home or self-care (01) ==
LOC: ER 02:01
DX: R07.9 Chest pain, unspecified (principal); I10 Essential (primary) hypertension; F17.200 Nicotine dependence, unspecified, uncomplicated; Z79.82 Long term (current) use of aspirin; Z88.5 Allergy status to narcotic agent; Z76.0 Encounter for issue of repeat prescription; Z88.6 Allergy status to analgesic agent
CPT/HCPCS: 36415; 71045; 80048; 84484; 85025; 85730; 93005; 99285; A4606; Z7610

== ENCOUNTER 2017-07-15 10:47 | Emergency (ER) | payer OTHER ==
[~2017-07-15] VITALS: Ht 190.5 cm; Wt 113.4 kg
--- NOTE | 2017-07-15 11:04 | NUR ---
PATIENT TO ED DT FLU LIKE SYMPTOMS X 2 DAYS. PATIENT IS AAO4. APPEARS IN NO APPARENT DISTRESS,. PATIENT NOT COOPERATIVE CARE.
--- NOTE | 2017-07-15 11:13 | NUR ---
PATOENT REFUSED BLOOD DRAW
--- NOTE | 2017-07-15 11:30 | NUR ---
PATIENT REFUSED BLOOD DRAW. EXPLAINED RISKS AND BENEFITS BUT PT STRONGLY REFUSED. MD AWARE
--- NOTE | 2017-07-15 11:50 | NUR ---
PT REFUSING BLOOD DRAW. THREATENING PT'S. ESCORTED OUT OF ED BY SECURITY. REFUSED TO SIGN DISCHARGE PAPERS.
[2017-07-15 11:53] VITALS: BP 153/85
== END 2017-07-15 11:54 | disposition home or self-care (01) ==
LOC: ER 10:50
DX: R07.89 Other chest pain (principal); I10 Essential (primary) hypertension; F17.200 Nicotine dependence, unspecified, uncomplicated; Z88.6 Allergy status to analgesic agent; Z79.82 Long term (current) use of aspirin; Z79.899 Other long term (current) drug therapy
CPT/HCPCS: 71045; 93005; 99284; A4606; Z7610

== ENCOUNTER 2017-07-15 21:45 | Emergency (ER) | payer OTHER ==
[~2017-07-15] VITALS: Ht 165.1 cm; Wt 75.7 kg
--- NOTE | 2017-07-16 01:05 | NUR ---
47 Y/O MALE PLACED IN BED 11 C/O CHEST PAIN. ACCORDING TO THE PT, HX OF HEART FAILURE.
--- NOTE | 2017-07-16 01:26 | NUR ---
PT PLACED O MONITOR. WAITING FOR ORDERS.
--- NOTE | 2017-07-16 01:45 | NUR ---
DX - CHEST WALL PAIN. ACI WITH RX GIVEN. PT DISCHARGED HOME TO FOLLOW-UP WITH PMD
[2017-07-16 01:55] VITALS: BP 128/74
== END 2017-07-16 01:59 | disposition home or self-care (01) ==
LOC: ER 21:49
DX: R07.89 Other chest pain (principal); I10 Essential (primary) hypertension; F17.200 Nicotine dependence, unspecified, uncomplicated; Z79.82 Long term (current) use of aspirin; Z88.5 Allergy status to narcotic agent; Z59.0 Homelessness
CPT/HCPCS: 93005; 99283; A4606; Z7610

== ENCOUNTER 2017-09-16 08:03 | Inpatient (IN) | payer OTHER ==
[~2017-09-16] VITALS: Ht 185.4 cm; Wt 87.5 kg
[2017-09-16] MEDS ORDERED: NITROGLYCERIN PACKET 1 GM PACKET ONE (08:41)
[2017-09-16] MEDS ORDERED: MORPHINE SULFATE INJ 4 MG/ML DISP.SYRIN ONE (08:41)
[2017-09-16] MEDS ORDERED: ASPIRIN 81 MG TAB.CHEW ONE (08:42)
[2017-09-16] MEDS ORDERED: ASPIRIN 81 MG TAB.CHEW PO ONE (09:00)
[2017-09-16] MEDS ORDERED: NITROGLYCERIN PACKET 1 GM PACKET TD ONE (09:00)
[2017-09-16] MEDS ORDERED: MORPHINE SULFATE INJ 2 MG/ML DISP.SYRIN IV ONE (09:00)
[2017-09-16 09:04] LABS: BASOPHILS % (AUTO) 0.5 % (0.0-2.0); EOSINOPHILS # (AUTO) 0.1 /CMM (0.0-0.7); EOSINOPHILS % (AUTO) 2.4 % (0.0-6.0); HEMATOCRIT 33 % (39-51); HEMOGLOBIN 10.6 g/dL (13.5-17.5); LYMPHOCYTES # (AUTO) 0.6 /CMM (0.8-4.8); LYMPHOCYTES % (AUTO) 14.9 % (20.0-44.0); MEAN CORPUSCULAR HEMOGLOBIN 27 PG (26.0-33.0); MEAN CORPUSCULAR HGB CONC 32 g/dl (31.0-36.0); MEAN CORPUSCULAR VOLUME 82 fL (80-96); MONOCYTES # (AUTO) 0.7 /CMM (0.1-1.30); MONOCYTES % (AUTO) 16.1 % (2.0-12.0); NEUTROPHILS # (AUTO) 2.7 /CMM (1.8-8.9); NEUTROPHILS % (AUTO) 66.1 % (43.0-81.0); PLATELET COUNT (AUTO) 199 /CMM (150-450); RDW COEFFICIENT OF VARIATION 20.5 (11.5-15.0); RED BLOOD CELL COUNT(AUTO) 3.98 MIL/uL (4.5-6.0); WHITE BLOOD COUNT (AUTO) 4.1 K/uL (4.3-11.0)
[2017-09-16 09:16] LABS: CARBON DIOXIDE 22 mmol/L (21-32); CHLORIDE 102 mmol/L (98-107); CREATININE 0.9 mg/dL (0.6-1.3); GLUCOSE 108 mg/dL (74-106); POTASSIUM 4.1 mmol/L (3.5-5.1); SODIUM SERUM 135 mmol/L (136-145); UREA NITROGEN, BLOOD 21 mg/dL (7-18)
[2017-09-16 09:23] LABS: TROPONIN I < 0.017 ng/mL (0.00-0.056)
[2017-09-16 09:28] LABS: B-TYPE NATRIURETIC PEPTIDE 3796 PG/ML (0-125)
[2017-09-16 09:31] LABS: INR 1.15 (0.87-1.13)
[2017-09-16] MEDS ORDERED: FUROSEMIDE 40 MG/4 ML VIAL ONE (09:57)
[2017-09-16] MEDS ORDERED: FUROSEMIDE 40 MG/4 ML VIAL IV ONE (10:00)
[2017-09-16 10:57] VITALS: BP 132/94
[2017-09-16 16:00] VITALS: BP 138/94
[2017-09-16] MEDS ORDERED: ONDANSETRON HCL/PF 4 MG/2 ML VIAL IVP PRN (17:00)
[2017-09-16] MEDS ORDERED: ACETAMINOPHEN 325 MG TABLET PO PRN (17:00)
[2017-09-16] MEDS ORDERED: MAGNESIUM HYDROXIDE 30 ML UDC PO PRN (17:00)
[2017-09-16 17:59] LABS: ABG BASE EXCESS 0.9 mmol/L; ABG OXYGEN SATURATION 91.5 % (92.0-98.5); ABG PCO2 33.5 mmHg (35.0-45.0); ABG PH 7.474 (7.350-7.450); ABG PO2 67.8 mmHg (75.0-100.0); AaDO2 135.6 mmHg; MetHb 0.6 % (0.0-1.5); SITE, ABG Left Radial; VENT MODE, BG NASAL CANNULA
[2017-09-16] MEDS: HYDROCODONE/APAP 5/325MG 1 EACH TABLET PO PRN (18:13)
[2017-09-16 18:26] VITALS: BP 138/94
[2017-09-16 20:00] VITALS: BP 140/86
[2017-09-16] MEDS: ZOLPIDEM TARTRATE 5 MG TABLET PO PRN (21:32)
[2017-09-17] VITALS: BP 144/88
[2017-09-17] MEDS: HYDROCODONE/APAP 5/325MG 1 EACH TABLET PO PRN ×4 (00:05→22:22)
[2017-09-17 04:00] VITALS: BP 154/75
[2017-09-17 07:19] LABS: BASOPHILS % (AUTO) 0.6 % (0.0-2.0); EOSINOPHILS # (AUTO) 0.1 /CMM (0.0-0.7); EOSINOPHILS % (AUTO) 2.2 % (0.0-6.0); HEMATOCRIT 33 % (39-51); HEMOGLOBIN 10.9 g/dL (13.5-17.5); LYMPHOCYTES # (AUTO) 0.7 /CMM (0.8-4.8); MEAN CORPUSCULAR HEMOGLOBIN 27 PG (26.0-33.0); MEAN CORPUSCULAR HGB CONC 33 g/dl (31.0-36.0); MEAN CORPUSCULAR VOLUME 81 fL (80-96); MONOCYTES # (AUTO) 0.6 /CMM (0.1-1.30); MONOCYTES % (AUTO) 11.8 % (2.0-12.0); NEUTROPHILS # (AUTO) 3.7 /CMM (1.8-8.9); NEUTROPHILS % (AUTO) 71.4 % (43.0-81.0); PLATELET COUNT (AUTO) 227 /CMM (150-450); RED BLOOD CELL COUNT(AUTO) 4.09 MIL/uL (4.5-6.0); WHITE BLOOD COUNT (AUTO) 5.2 K/uL (4.3-11.0)
[2017-09-17 07:49] LABS: CALCIUM, SERUM 8.9 mg/dL (8.5-10.1); MAGNESIUM 1.5 mg/dL (1.8-2.4); PHOSPHORUS 3.4 mg/dL (2.5-4.9); POTASSIUM 4.2 mmol/L (3.5-5.1)
[2017-09-17 08:00] VITALS: BP 133/88
[2017-09-17] MEDS ORDERED: FUROSEMIDE 40 MG/4 ML VIAL IV SCH (09:00)
[2017-09-17] MEDS: CARVEDILOL 3.125 MG TABLET PO SCH ×2 (09:47→16:38)
[2017-09-17] MEDS: LISINOPRIL (5MG) 5 MG TABLET PO SCH (09:47)
[2017-09-17] MEDS: SPIRONOLACTONE 25 MG TABLET PO SCH (09:48)
[2017-09-17] MEDS: ASPIRIN EC 81 MG TABLET.DR PO SCH (09:48)
[2017-09-17 12:00] VITALS: BP 108/73
[2017-09-17] MEDS: Magnesium 1GM/D5W 100ML PREMIX 100 ML IV SCH ×2 (12:38→14:02)
[2017-09-17] MEDS ORDERED: ALBUTEROL FS 2.5 MG/0.5 ML VIAL.NEB NEB PRN (14:00)
[2017-09-17] MEDS ORDERED: IPRATROPIUM NEB FS 0.5 MG/2.5 ML AMPUL.NEB NEB PRN (14:00)
[2017-09-17 16:00] VITALS: BP 116/60
[2017-09-17] MEDS: FUROSEMIDE 40 MG/4 ML VIAL IV SCH (17:49)
[2017-09-17 20:00] VITALS: BP_SYST 89; BP_DIAS 54; BP_DIAS 57
[2017-09-18] MEDS: HYDROCODONE/APAP 5/325MG 1 EACH TABLET PO PRN ×3 (02:27→19:51)
[2017-09-18 08:00] VITALS: BP 97/61
[2017-09-18] MEDS: FUROSEMIDE 40 MG/4 ML VIAL IV SCH (08:34)
[2017-09-18] MEDS: SPIRONOLACTONE 25 MG TABLET PO SCH (08:34)
[2017-09-18] MEDS: CARVEDILOL 3.125 MG TABLET PO SCH ×2 (08:34→17:00)
[2017-09-18] MEDS: LISINOPRIL (5MG) 5 MG TABLET PO SCH (08:34)
[2017-09-18] MEDS: ASPIRIN EC 81 MG TABLET.DR PO SCH (08:34)
[2017-09-18 16:00] VITALS: BP 102/63
[2017-09-18 20:00] VITALS: BP 107/62
[2017-09-18] MEDS: ZOLPIDEM TARTRATE 5 MG TABLET PO PRN (21:56)
[2017-09-19 08:00] VITALS: BP 99/59
[2017-09-19 08:13] VITALS: BP 119/60
[2017-09-19] MEDS: ASPIRIN EC 81 MG TABLET.DR PO SCH (10:44)
[2017-09-19] MEDS: LISINOPRIL (5MG) 5 MG TABLET PO SCH (10:44)
[2017-09-19] MEDS: SPIRONOLACTONE 25 MG TABLET PO SCH (10:44)
[2017-09-19] MEDS: FUROSEMIDE 40 MG TABLET PO SCH (10:44)
[2017-09-19] MEDS: CARVEDILOL 3.125 MG TABLET PO SCH ×2 (10:45→18:09)
[2017-09-19 16:00] VITALS: BP 112/64
[2017-09-19] MEDS: HYDROCODONE/APAP 5/325MG 1 EACH TABLET PO PRN (18:09)
[2017-09-19 18:58] LABS: CALCIUM, SERUM 8.8 mg/dL (8.5-10.1); CREATININE 0.9 mg/dL (0.6-1.3); MAGNESIUM 1.6 mg/dL (1.8-2.4); PHOSPHORUS 3.7 mg/dL (2.5-4.9); POTASSIUM 4.4 mmol/L (3.5-5.1)
[2017-09-19 18:59] LABS: EOSINOPHILS # (AUTO) 0.2 /CMM (0.0-0.7); EOSINOPHILS % (AUTO) 4.1 % (0.0-6.0); HEMATOCRIT 33 % (39-51); HEMOGLOBIN 10.7 g/dL (13.5-17.5); LYMPHOCYTES % (AUTO) 22.7 % (20.0-44.0); MEAN CORPUSCULAR HEMOGLOBIN 26 PG (26.0-33.0); MEAN CORPUSCULAR HGB CONC 32 g/dl (31.0-36.0); MEAN CORPUSCULAR VOLUME 82 fL (80-96); MONOCYTES # (AUTO) 1.1 /CMM (0.1-1.30); MONOCYTES % (AUTO) 25.7 % (2.0-12.0); NEUTROPHILS % (AUTO) 47.5 % (43.0-81.0); PLATELET COUNT (AUTO) 241 /CMM (150-450); RED BLOOD CELL COUNT(AUTO) 4.06 MIL/uL (4.5-6.0); WHITE BLOOD COUNT (AUTO) 4.3 K/uL (4.3-11.0)
[2017-09-19 19:59] LABS: BAND % (MANUAL) 2 % (0.0-5.0); EOSINOPHILS % (MANUAL) 4 % (0-4); LYMPHOCYTES % (MANUAL) 32 % (16-48); MONOCYTES % (MANUAL) 24 % (0-11.0); NEUTROPHILS % (MANUAL) 38 (42-76)
[2017-09-19 20:29] VITALS: BP 97/57
[2017-09-19] MEDS: ZOLPIDEM TARTRATE 5 MG TABLET PO PRN (22:00)
[2017-09-19] MEDS ORDERED: Magnesium 1GM/D5W 100ML PREMIX 100 ML IV SCH (22:30)
[2017-09-20 08:00] VITALS: BP 105/67
[2017-09-20] MEDS: ASPIRIN EC 81 MG TABLET.DR PO SCH (09:08)
[2017-09-20] MEDS: SPIRONOLACTONE 25 MG TABLET PO SCH (09:08)
[2017-09-20] MEDS: FUROSEMIDE 40 MG TABLET PO SCH (09:08)
[2017-09-20 09:09] VITALS: BP 105/61
[2017-09-20] MEDS: LISINOPRIL (5MG) 5 MG TABLET PO SCH (09:09)
[2017-09-20] MEDS: CARVEDILOL 3.125 MG TABLET PO SCH (09:09)
== END 2017-09-20 15:15 | disposition home or self-care (01) | DRG 194 ==
LOC: ER 08:05 → TELE 10:09 → MED 09-17 20:00
PROVIDERS: ADMIT Nurse Practitioner Acute Care; ATTEND Nurse Practitioner Acute Care
DX: I11.0 Hypertensive heart disease with heart failure (principal); J96.01 Acute respiratory failure with hypoxia; E87.1 Hypo-osmolality and hyponatremia; I27.20 Pulmonary hypertension, unspecified; I42.9 Cardiomyopathy, unspecified; I50.23 Acute on chronic systolic (congestive) heart failure; D63.8 Anemia in other chronic diseases classified elsewhere; E78.5 Hyperlipidemia, unspecified; F20.9 Schizophrenia, unspecified; F31.9 Bipolar disorder, unspecified; I25.10 Atherosclerotic heart disease of native coronary artery without angina pectoris; K21.9 Gastro-esophageal reflux disease without esophagitis; Z59.0 Homelessness; Z87.891 Personal history of nicotine dependence; Z91.14 Patient's other noncompliance with medication regimen; I34.0 Nonrheumatic mitral (valve) insufficiency; I25.119 Atherosclerotic heart disease of native coronary artery with unspecified angina pectoris
CPT/HCPCS: 36415; 36600; 71045-TC; 80048-TC; 80061-TC; 80305; 82803-TC; 83735-TC; 83880; 84100-TC; 84484-TC; 85025-TC; 85730-TC; 87081-TC; 93307-TC; 94799-TC; A4606; J1940; J2270; J2405; J3475; J7050; Z7610

== ENCOUNTER 2017-10-17 16:41 | Emergency (ER) | payer OTHER ==
[~2017-10-17] VITALS: Ht 185.4 cm; Wt 90.7 kg
--- NOTE | 2017-10-17 17:00 | NUR ---
PT BBRA FROM [place] C/O CP AND "FEELING SICK AFTER COMING BACK FROM [facility]". PT IS AAOX4. SHARP CP RADIATING DOWN R SIDE, PAIN 04/18. SKIN WNL. -N/V/D. RESP EVEN AND UNLABORED. NO S/S OF ACUTE DISTRESS NOTED. VSS. PT SAFETY AND COMFORT MEASURES IN PLACE. PT PLACED ON MONITOR AND POX. AWAITING MD FOR EVAL.
[2017-10-17 17:58] LABS: HEMOGLOBIN 11.8 g/dL (13.5-17.5); MONOCYTES # (AUTO) 0.5 /CMM (0.1-1.30)
[2017-10-17 18:04] LABS: BASOPHILS # (AUTO) 0.2 /CMM (0.0-0.2); BASOPHILS % (AUTO) 4.4 % (0.0-2.0); EOSINOPHILS % (AUTO) 1.2 % (0.0-6.0); HEMATOCRIT 36 % (39-51); LYMPHOCYTES # (AUTO) 0.9 /CMM (0.8-4.8); LYMPHOCYTES % (AUTO) 19.4 % (20.0-44.0); MEAN CORPUSCULAR HGB CONC 33 g/dl (31.0-36.0); MEAN CORPUSCULAR VOLUME 82 fL (80-96); MONOCYTES % (AUTO) 11.1 % (2.0-12.0); NEUTROPHILS # (AUTO) 3.1 /CMM (1.8-8.9); NEUTROPHILS % (AUTO) 63.9 % (43.0-81.0); PLATELET COUNT (AUTO) 180 /CMM (150-450); RED BLOOD CELL COUNT(AUTO) 4.36 MIL/uL (4.5-6.0); WHITE BLOOD COUNT (AUTO) 4.8 K/uL (4.3-11.0)
[2017-10-17 18:09] LABS: CALCIUM, SERUM 9.1 mg/dL (8.5-10.1); CARBON DIOXIDE 23 mmol/L (21-32); CHLORIDE 104 mmol/L (98-107); CREATININE 0.8 mg/dL (0.6-1.3); GLUCOSE 86 mg/dL (74-106); SODIUM SERUM 137 mmol/L (136-145); UREA NITROGEN, BLOOD 22 mg/dL (7-18)
[2017-10-17 18:25] LABS: TROPONIN I < 0.017 ng/mL (0.00-0.056)
[2017-10-17 18:32] LABS: INR 1.13 (0.85-1.15)
--- NOTE | 2017-10-17 18:41 | NUR ---
PT STATES SOB. NO S/S OF DISTRESS NOTED IN PT. RESP EVEN AND UNLABORED. SPO2 99%. MADE AWARE. PT PLACED ON NC 2L
--- NOTE | 2017-10-17 19:03 | NUR ---
EMT BEDSIDE FOR WOUND CARE
[2017-10-17] MEDS: ALBUTEROL FS 2.5 MG/3 ML VIAL.NEB NEB ONE (19:24)
[2017-10-17] MEDS: IPRATROPIUM NEB FS 0.5 MG/2.5 ML AMPUL.NEB NEB ONE (19:24)
[2017-10-17] MEDS ORDERED: IPRATROPIUM NEB FS 0.5 MG/2.5 ML AMPUL.NEB ONE (19:25)
[2017-10-17] MEDS ORDERED: ALBUTEROL FS 2.5 MG/3 ML VIAL.NEB ONE (19:25)
--- NOTE | 2017-10-17 19:54 | NUR ---
PT REFUSED DISCHARGE PAPERWORK AND REFUSED PRESCRIBED PRESCRIPTIONS. PT STATES "I DO NOT WANT TO GO BACK OUTSIDE IN THE COLD AND NEED A PLACE TO SLEEP". PT WAS GIVEN RESOURCES FOR SHELTERS. PT REFUSED RESOURCES. RUTHIE RODRIGUEZ MADE AWARE. SECURITY CALLED TO ESCORT PT OUT OF ER. PT BECAME AGREVATED AND UNCOOPERATIVE.
[2017-10-17 20:10] VITALS: BP 150/107
== END 2017-10-17 20:14 | disposition home or self-care (01) ==
LOC: ER 16:42
DX: I11.0 Hypertensive heart disease with heart failure (principal); I50.9 Heart failure, unspecified; J06.9 Acute upper respiratory infection, unspecified; F17.200 Nicotine dependence, unspecified, uncomplicated; Z59.0 Homelessness; Z79.82 Long term (current) use of aspirin; Z88.5 Allergy status to narcotic agent
CPT/HCPCS: 36415; 71045-TC; 80048-TC; 83880; 84484-TC; 85025-TC; 85730-TC; A4606; Z7610

== ENCOUNTER 2018-09-11 18:27 | Inpatient (IN) | payer MEDICAID, OTHER ==
[~2018-09-11] VITALS: Ht 195.6 cm; Wt 94.8 kg
--- NOTE | 2018-09-11 18:57 | NUR ---
BIBRA60, C/O CP DULL NON-RADIATING x 1 MONTH, WORSE TODAY AFTER DRINKING ALCOHOL. ALSO C/O OF PAINFUL MASS ON RIGHT THIGH. PT IS AOX4, AMB, VSS, RR EVEN AND UNLABORED. SKIN INTACT, NO ACUTE DISTRESS NOTED. READY FOR EVAL.
[2018-09-11 19:04] LABS: EOSINOPHILS % (AUTO) 0.5 % (0.0-6.0); HEMATOCRIT 36 % (39-51); HEMOGLOBIN 12.1 g/dL (13.5-17.5); LYMPHOCYTES # (AUTO) 0.8 /CMM (0.8-4.8); MEAN CORPUSCULAR HGB CONC 33 g/dl (31.0-36.0); MEAN CORPUSCULAR VOLUME 95 fL (80-96); MONOCYTES # (AUTO) 0.7 /CMM (0.1-1.30); MONOCYTES % (AUTO) 20.2 % (2.0-12.0); NEUTROPHILS # (AUTO) 1.7 /CMM (1.8-8.9); NEUTROPHILS % (AUTO) 53.3 % (43.0-81.0); PLATELET COUNT (AUTO) 155 /CMM (150-450); RED BLOOD CELL COUNT(AUTO) 3.82 MIL/uL (4.5-6.0); WHITE BLOOD COUNT (AUTO) 3.3 K/uL (4.3-11.0)
[2018-09-11 19:15] LABS: CALCIUM, SERUM 8.3 mg/dL (8.5-10.1); CARBON DIOXIDE 26 mmol/L (21-32); CHLORIDE 105 mmol/L (98-107); CREATININE 0.8 mg/dL (0.6-1.3); GLUCOSE 104 mg/dL (74-106); POTASSIUM 3.2 mmol/L (3.5-5.1); SODIUM SERUM 137 mmol/L (136-145); UREA NITROGEN, BLOOD 15 mg/dL (7-18)
[2018-09-11 19:18] LABS: ALCOHOL, BLOOD 196 mg/dL (0-0)
[2018-09-11 19:21] LABS: ACETAMINOPHEN < 2 ug/ml (10-30); ALANINE AMINOTRANSFERASE 26 U/L (12-78); ALBUMIN 3.6 g/dL (3.4-5.0); ALKALINE PHOSPHATASE 80 U/L (46-116); ASPARTATE AMINOTRANSFERASE 35 U/L (15-37); BILIRUBIN,DIRECT 0.1 mg/dL (0.0-0.2); BILIRUBIN,TOTAL 0.3 mg/dL (0.2-1.0); SALICYLATE 2.5 mg/dL (2.8-20.0); TOTAL PROTEIN, SERUM 7.2 g/dL (6.4-8.2)
--- NOTE | 2018-09-11 19:35 | NUR ---
PT REFUSING TO GIVE URINE SAMPLE AT THIS TIME. WILL NOTIFY NATURAL RESOURCE SPECIALIST.
[2018-09-11] MEDS ORDERED: POTASSIUM CHLORIDE 20 MEQ TAB.PRT.SR PO ONE ×2 (19:56→20:00)
--- NOTE | 2018-09-11 20:11 | NUR ---
MEDICATION GIVEN. PROVIDED PT WITH FOOD AND EXTRA BLANKETS FOR COMFORT.
--- NOTE | 2018-09-11 20:29 | NUR ---
PAGED [facility] FOR PANEL - ACCOUNTANT MANAGER UMA SHELDON
--- NOTE | 2018-09-11 20:43 | NUR ---
PT UNABLE TO GIVE URINE AT THIS TIME
--- NOTE | 2018-09-11 20:49 | NUR ---
REPORT GIVEN TO BYRON FOR 327-1 TELE
[2018-09-11 21:15] VITALS: BP 123/71
--- NOTE | 2018-09-11 21:15 | NUR ---
RN NOTES RECEIVED PATIENT, TRANSPORTED VIA GURNEY, NO SIGNS OF ACUTE DISTRESS NOTED, INITIAL ASSESSMENT DONE, ADMISSION QUESTIONNAIRES DONE, COMPLAINT OF RIGHT THIGH PAIN, NOTED MASS ON HIS RIGHT UPPER THIGH NOTED, MD AWARE, DENIES CHEST PAIN AT THIS TIME, ORIENTED TO UNIT, CALL LIGHT WITHIN EASY REACH, ALL SAFETY MEASURES IN PLACED, PROVIDED FOOD PER PATIENT REQUEST. ALL NEEDS ATTENDED, WILL MONITOR ACCORDINGLY, AWAITING FOR ADMISSION ORDERS.
--- NOTE | 2018-09-11 21:16 | NUR ---
[facility]
[2018-09-11] MEDS ORDERED: ONDANSETRON HCL/PF 4 MG/2 ML VIAL IVP PRN (22:30)
[2018-09-11] MEDS ORDERED: ZOLPIDEM TARTRATE 5 MG TABLET PO PRN (22:30)
[2018-09-11] MEDS ORDERED: MAGNESIUM HYDROXIDE 30 ML UDC PO PRN (22:30)
--- NOTE | 2018-09-12 00:10 | NUR ---
RN NOTES PATIENT ASKED FOR FOOD, PROVIDED SANDWICH, DENIES ANY PAIN AT THIS TIME.
--- NOTE | 2018-09-12 03:50 | NUR ---
RN NOTES PATIENT ASKED FOR FOOD, PROVIDED SANDWICH, WATER, ORANGE JUICE AND BEATRIZ CRACKERS. NO SIGNS OF ACUTE DISTRESS NOTED, WILL CONTINUE TO MONITOR.
[2018-09-12 06:35] LABS: BASOPHILS % (AUTO) 0.9 % (0.0-2.0); EOSINOPHILS % (AUTO) 1.6 % (0.0-6.0); HEMATOCRIT 36 % (39-51); HEMOGLOBIN 12.2 g/dL (13.5-17.5); LYMPHOCYTES # (AUTO) 0.8 /CMM (0.8-4.8); LYMPHOCYTES % (AUTO) 27.2 % (20.0-44.0); MEAN CORPUSCULAR HGB CONC 34 g/dl (31.0-36.0); MEAN CORPUSCULAR VOLUME 94 fL (80-96); MONOCYTES # (AUTO) 0.7 /CMM (0.1-1.30); MONOCYTES % (AUTO) 22.6 % (2.0-12.0); NEUTROPHILS # (AUTO) 1.4 /CMM (1.8-8.9); NEUTROPHILS % (AUTO) 47.7 % (43.0-81.0); PLATELET COUNT (AUTO) 127 /CMM (150-450); RED BLOOD CELL COUNT(AUTO) 3.83 MIL/uL (4.5-6.0)
[2018-09-12 06:38] LABS: CALCIUM, SERUM 8.7 mg/dL (8.5-10.1); CREATININE 0.8 mg/dL (0.6-1.3); MAGNESIUM 1.8 mg/dL (1.8-2.4); PHOSPHORUS 3.8 mg/dL (2.5-4.9); POTASSIUM 4.2 mmol/L (3.5-5.1)
--- NOTE | 2018-09-12 06:40 | NUR ---
RN NOTES ALL NEEDS ATTENDED, WILL ENDORSE TO AM NURSE TO COLLECT URINE ONCE AVAILABLE.
--- NOTE | 2018-09-12 07:30 | NUR ---
MS RN Opening Notes Patient asleep, resting in bed. Alert and oriented x4, able to make needs known. No complaints of pain at this time. Respirations even and unlabored on room air, no acute distress noted. Peripheral IV to the left AC 20 gauge, intact, patent and saline locked. Updated patient on current plan of care and safety measures. Patient verbalized understanding. Safety and fall precautions in place: bed in lowest and locked position, side rails up x2, bed alarm on, call light and personal possessions within reach. Patient verbalized understanding. Will continue to monitor and intervene as needed.
[2018-09-12 08:08] LABS: LYMPHOCYTES % (MANUAL) 27 % (16-48); MONOCYTES % (MANUAL) 13 % (0-11.0); NEUTROPHILS % (MANUAL) 60 (42-76)
[2018-09-12 08:27] VITALS: BP 132/75
[2018-09-12] MEDS: ASPIRIN EC 81 MG TABLET.DR PO SCH (08:55)
[2018-09-12] MEDS: FUROSEMIDE 40 MG TABLET PO SCH ×2 (08:56→18:40)
[2018-09-12] MEDS: LISINOPRIL (5MG) 5 MG TABLET PO SCH (08:56)
[2018-09-12] MEDS: SPIRONOLACTONE 25 MG TABLET PO SCH (08:56)
[2018-09-12] MEDS: CARVEDILOL 6.25 MG TABLET PO SCH ×2 (08:58→20:49)
[2018-09-12 09:40] LABS: IRON, SERUM 67 ug/dl (50-175); TOTAL IRON BINDING CAPACITY 367 ug/dl (250-450)
[2018-09-12 11:11] LABS: FERRITIN 32 ng/mL (8-388)
[2018-09-12] MEDS: FOLIC ACID 1 MG TABLET PO SCH (11:33)
[2018-09-12] MEDS: MULTIVITAMINS,THERAGRAN 1 UDTAB TABLET PO SCH (11:33)
[2018-09-12] MEDS: THIAMINE HCL 100 MG TABLET PO SCH (11:33)
--- NOTE | 2018-09-12 13:27 | NUR ---
Social service consult for homelessness. Pt. is a 48 year old male who was admitted to [facility] for chest pain. SHYAM met with pt. bedside. Pt. is alert and oriented x 4. Pt. is pleasant and cooperative with SW during the assessment. SW is familiar with pt. from a previous admission on 02/21/2017. Pt. states he has been homeless for the past four years. Pt. has a mother who resides in [place]. Pt. states he resides in a tent in [facility]. Pt. states he reached out to his homeless navigator Sridevi Barrett in regards to housing and he will be visiting him in [facility] tomorrow. Pt. gave verbal consent for SW to speak with Sridevi Barrett. Pt. has a psychiatric diagnosis of Bipolar Schizophrenia. Pt. denies any drug use and says he drinks a beer or two here and there. Pt. smokes marijuana once in a while. Pt. receives $997 in SSI per month. SHYAM contacted Sridevi Barrett and informed him that pt.gave SW verbal consent to call him regarding housing. Per Sridevi, pt. was receiving services but had stopped because he had preferred to live in his tent. However, pt. reached out to Sridevi recently and wants assistance with housing. Sridevi informed SW he will be visiting with the pt. tomorrow. SHYAM requested for Sridevi to inform SW when he gets to [facility] and she would meet with him to discuss housing options for the pt.
[2018-09-12 16:00] VITALS: BP 129/69
--- NOTE | 2018-09-12 16:00 | NUR ---
Patient refused second attempt at CT scan of right lower extremity and thigh. Educated about risks and benefits of test, still refused. Deferred to tomorrow because states "techs took too long to come take patient for test". Will endorse to next shift and follow-up.
--- NOTE | 2018-09-12 16:30 | NUR ---
Patient refused PROGRAM HOST help with afternoon care and bath. Self-care in AM. Refused to have sheets changed and any other self-care help at this time despite three attempts. Will follow-up later this evening.
[2018-09-12 17:41] LABS: APPEARANCE,URINE CLEAR (CLEAR); BILIRUBIN,URINE NEGATIVE (NEGATIVE); BLOOD, URINE NEGATIVE Ery/uL (NEGATIVE); COLOR,URINE YELLOW (YELLOW); KETONES,URINE NEGATIVE (NEGATIVE); LEUKOCYTE ESTERASE ,URINE NEGATIVE (NEGATIVE); NITRITE, URINE NEGATIVE (NEGATIVE); PH,URINE 5.5 (5.0-8.0); PROTEIN,URINE NEGATIVE (NEGATIVE); UGLUCOSE NEGATIVE (NEGATIVE); UROBILINOGEN,URINE 0.2 EU/dL (0.2)
[2018-09-12] MEDS: ACETAMINOPHEN 325 MG TABLET PO PRN (18:41)
--- NOTE | 2018-09-12 19:34 | NUR ---
MS RN Closing Notes Patient asleep, resting in bed. Alert and oriented x4, able to make needs known. No complaints of pain at this time. Respirations even and unlabored on room air, no acute distress noted. Peripheral IV to the right forearm 22 gauge, intact, patent and saline locked. Updated patient on current plan of care and safety measures. Patient verbalized understanding. Safety and fall precautions in place: bed in lowest and locked position, side rails up x2, bed alarm on, call light and personal possessions within reach. Patient verbalized understanding. Will endorse to overnight caregiver RN for continuity of care.
--- NOTE | 2018-09-12 19:38 | NUR ---
MS RN NOTES RECEIVED ON BED A/O X4,HOMELESS,ON FLUID RESTRICTIONS 1LITER/DAY.PATIENT AWARE.SALINE LOCK RIGHT AC INTACT AND PATENT.AMBULATE WITH ASSIST,CALL LIGHT IN REACH,NEEDS ANTICIPATED.
[2018-09-12 20:00] VITALS: BP 127/70
[2018-09-12 20:08] VITALS: BP 127/70
--- NOTE | 2018-09-13 01:39 | NUR ---
MS RN NOTES C/O INSOMNIA,AMBIEN 5MG PO GIVEN
[2018-09-13] MEDS: ACETAMINOPHEN 325 MG TABLET PO PRN ×3 (01:40→14:55)
--- NOTE | 2018-09-13 01:40 | NUR ---
MS RN NOTES C/O CHEST PAIN,PLACE ON O2 AT 2L/NC.TYLENOL 650MG PO GIVEN.
--- NOTE | 2018-09-13 03:00 | NUR ---
MS RN NOTES SOUND ASLEEP,KEPT WARM AND COMFORTABLE.
--- NOTE | 2018-09-13 05:45 | NUR ---
MS RN NOTES AWAKE NOW,C/O CHEST PAIN,O2 SAT 99% ON 2L/NC,BP-124/80,PULSE 78,RR-20,ORAL TEMP-97.5, SR WITH OCCSIONAL PVC'S,RATE OF 84. ACNP FIELD RESEARCH ASSOCIATE WAS PAGE,AWAITING TO CALL BACK.
--- NOTE | 2018-09-13 06:40 | NUR ---
MS RN NOTES [facility] CALLED BACK,MADE AWARE OF PATIENT CHEST PAIN,NO FURTHER ORDERS.
--- NOTE | 2018-09-13 06:49 | NUR ---
MS RN NOTES CALM ,NO CHEST PAIN AT THE MOMENT,O2 IN USED,CALL LIGHT IN REACH,NEEDS ATTENDED.WILL ENDORSE TO DAY NURSE FOR CARY.
--- NOTE | 2018-09-13 07:46 | NUR ---
MS RN Opening Notes Patient asleep, resting in bed. Alert and oriented x4, able to make needs known. No complaints of pain at this time. Respirations even and unlabored on room air, no acute distress noted. Peripheral IV to the right forearm 22 gauge, intact, patent and saline locked. Updated patient on current plan of care and safety measures. Patient verbalized understanding. Safety and fall precautions in place: bed in lowest and locked position, side rails up x2, bed alarm on, call light and personal possessions within reach. Patient verbalized understanding. Will continue to monitor and intervene as needed.
[2018-09-13 07:56] LABS: BASOPHILS % (AUTO) 0.6 % (0.0-2.0); EOSINOPHILS % (AUTO) 1.6 % (0.0-6.0); HEMATOCRIT 47 % (39-51); HEMOGLOBIN 15.8 g/dL (13.5-17.5); LYMPHOCYTES # (AUTO) 0.7 /CMM (0.8-4.8); LYMPHOCYTES % (AUTO) 18.7 % (20.0-44.0); MEAN CORPUSCULAR HGB CONC 34 g/dl (31.0-36.0); MEAN CORPUSCULAR VOLUME 94 fL (80-96); MONOCYTES # (AUTO) 0.6 /CMM (0.1-1.30); MONOCYTES % (AUTO) 14.9 % (2.0-12.0); NEUTROPHILS # (AUTO) 2.5 /CMM (1.8-8.9); NEUTROPHILS % (AUTO) 64.2 % (43.0-81.0); PLATELET COUNT (AUTO) 169 /CMM (150-450); RED BLOOD CELL COUNT(AUTO) 4.96 MIL/uL (4.5-6.0); WHITE BLOOD COUNT (AUTO) 3.9 K/uL (4.3-11.0)
[2018-09-13 08:00] VITALS: BP 127/82
[2018-09-13 08:17] LABS: CALCIUM, SERUM 9.4 mg/dL (8.5-10.1); CREATININE 0.9 mg/dL (0.6-1.3); POTASSIUM 3.5 mmol/L (3.5-5.1)
[2018-09-13] MEDS: FUROSEMIDE 40 MG TABLET PO SCH (08:34)
[2018-09-13] MEDS: FOLIC ACID 1 MG TABLET PO SCH (08:34)
[2018-09-13] MEDS: THIAMINE HCL 100 MG TABLET PO SCH (08:34)
[2018-09-13] MEDS: CARVEDILOL 6.25 MG TABLET PO SCH ×2 (08:34→21:00)
[2018-09-13] MEDS: ASPIRIN EC 81 MG TABLET.DR PO SCH (08:34)
[2018-09-13] MEDS: MULTIVITAMINS,THERAGRAN 1 UDTAB TABLET PO SCH (08:34)
[2018-09-13] MEDS: SPIRONOLACTONE 25 MG TABLET PO SCH (08:35)
[2018-09-13] MEDS: LISINOPRIL (5MG) 5 MG TABLET PO SCH (08:35)
--- NOTE | 2018-09-13 09:06 | NUR ---
Spoke with WILVER Mccauley. Pt. refused CT exam. Wants to retry at a later time.
[2018-09-13] MEDS ORDERED: IV NS 0.9% 250 ML IV ONE (10:44)
[2018-09-13] MEDS ORDERED: IOHEXOL-300 100 ML VIAL IV ONE (10:44)
[2018-09-13] MEDS ORDERED: CT SWABBABLE VALVE TRANS SET 1 EA INFUS.SET MC ONE (10:44)
--- NOTE | 2018-09-13 14:13 | NUR ---
SHYAM met with pt. bedside along with pt's homeless Navigator REJI Barrett. Ibrahima informed SW that pt. is currently stating he is willing to go to an independent living in [place]. Ibrahima informed SW he will contact the cash van salesperson of the independent living and follow up with SW as to the discharge plan. SHYAM also informed Ibrahima and pt that she will refer him to the [facility]. SHYAM contact Ellis Vargas at [facility] and left him a voicemail message requesting a call back.
[2018-09-13 16:00] VITALS: BP 117/74
--- NOTE | 2018-09-13 17:06 | NUR ---
Patient complaining of abdominal pain, unrelieved with PRN Tylenol. Paged Dr. Dietrich for additional pain management orders. Telephone orders of [place] 10-325 by mouth every 6 hours as needed for pain. Notified MD of documented patient allergy to hydromorphone. MD verified okay to give. Also received orders for oral antibiotics. Verified and read-back orders to confirm. Will carry out and continue to monitor patient.
[2018-09-13 17:30] VITALS: BP 101/60
[2018-09-13] MEDS ORDERED: HYDROCODONE/APAP 10/325MG 1 EA TABLET PO PRN (17:30)
[2018-09-13] MEDS ORDERED: diphenhydrAMINE HCL 50 MG/ML VIAL IV PRN (17:30)
[2018-09-13] MEDS ORDERED: METRONIDAZOLE 500 MG TABLET PO SCH (17:30)
--- NOTE | 2018-09-13 17:35 | NUR ---
Paged Dr. Dietrich to come assess patient per patient's condition. Agitated, unrelieved 10/10 abdominal pain. Blood pressure trending down. Will monitor patient.
[2018-09-13] MEDS ORDERED: LEVOFLOXACIN (500MG) 500 MG TABLET PO SCH (18:00)
--- NOTE | 2018-09-13 18:15 | NUR ---
Per Dr. Dietrich, STAT and medication orders noted and carried out. Will continue to monitor.
[2018-09-13] MEDS ORDERED: IV NS 0.9% 500 ML IV ONE (18:30)
[2018-09-13] MEDS ORDERED: MORPHINE SULFATE INJ 4 MG/ML DISP.SYRIN IV PRN (18:30)
[2018-09-13] MEDS ORDERED: IV NS 0.9% 1,000 ML IV PRN (18:30)
--- NOTE | 2018-09-13 19:00 | NUR ---
MS RN Closing Notes Patient asleep, resting in bed. Alert and oriented x4, able to make needs known. No complaints of pain at this time. Respirations even and unlabored on 4 L oxygen via nasal cannula for comfort, no acute distress noted. Peripheral IV to the right forearm 22 gauge, intact, patent and infusing normal saline 500 ml bolus wide open as ordered. Updated patient on current plan of care and safety measures. Patient verbalized understanding. Safety and fall precautions in place: bed in lowest and locked position, side rails up x2, bed alarm on, call light and personal possessions within reach. IVP Benadryl and Morphine given as ordered for non-relieving abdominal pain. Will endorse care to shift nurse manager RN for continuity of care.
--- NOTE | 2018-09-13 19:30 | NUR ---
MS RN NOTES RECEIVED ON BED A/O X3,HOMELESS,ABLE TO VERBALIZED NEEDS,CLAIMED HE FEELS BETTER AT THE MOMENT.NS IB BOLUS IN PROGRESS,SITE PATENT ON RIGHT FORE ARM.CALL LIGHT IN REACH.WILL CONTINUE TO MONITOR STATUS.
[2018-09-13 20:00] VITALS: BP 108/54
[2018-09-13] MEDS ORDERED: LEVOFLOXACIN 500 MG /D5W 100ML 500 MG in PREMIX 1 EA IV SCH (20:00)
[2018-09-13] MEDS: METRONIDAZOLE 500MG/ NS 100ML 500 MG in PREMIX 1 EA IV SCH (21:40)
--- NOTE | 2018-09-14 00:25 | NUR ---
MS RN NOTES AWAKE,C/O GENERALIZED PAIN 7/10 ON PAIN SCALE,MEDICATED WITH [place] 10/325,1 TAB PO ORDERED FOR MODERATE PAIN
[2018-09-14] MEDS: METRONIDAZOLE 500MG/ NS 100ML 500 MG in PREMIX 1 EA IV SCH (04:56)
--- NOTE | 2018-09-14 06:29 | NUR ---
MS RN NOTES SLEPT WELL AT NIGHT,IVF INFUSING WELL ON RIGHT FORE ARM,ABDOMINAL PAIN SUBSIDED.NO N/V/D NOTED.FLUIDS RESTRICTIONS REMINDED.IV ABX TOLERATED WELL.IN NO ACUTE DISTRESS.WILL ENDORSE TO DAY NURSE FOR CARY.
--- NOTE | 2018-09-14 07:35 | NUR ---
RN OPENING NOTE RECEIVED PATIENT IN BED AT LOWEST AND LOCKED POSITION WITH SIDE RAILS UP X2, A/OX4, BREATHING EVEN AND UNLABORED ON RA, NO S/S OF PAIN OR DISTRESS NOTED, DENIES ANY PAIN, IV IS PATENT AND INTACT,SAFETY PRECAUTIONS IN PLACE, CALL LIGHT WITHIN REACH, WILL MONITOR ACCORDINGLY.
[2018-09-14 08:00] VITALS: BP 118/70
[2018-09-14] MEDS: FOLIC ACID 1 MG TABLET PO SCH (08:47)
[2018-09-14] MEDS: THIAMINE HCL 100 MG TABLET PO SCH (08:47)
[2018-09-14] MEDS: MULTIVITAMINS,THERAGRAN 1 UDTAB TABLET PO SCH (08:47)
[2018-09-14] MEDS: ASPIRIN EC 81 MG TABLET.DR PO SCH (08:47)
[2018-09-14] MEDS: CARVEDILOL 6.25 MG TABLET PO SCH (08:48)
[2018-09-14 08:49] VITALS: BP 118/70
[2018-09-14] MEDS: LISINOPRIL (5MG) 5 MG TABLET PO SCH (08:49)
[2018-09-14] MEDS: SPIRONOLACTONE 25 MG TABLET PO SCH (08:49)
[2018-09-14] MEDS ORDERED: FUROSEMIDE 40 MG TABLET PO SCH (09:00)
--- NOTE | 2018-09-14 09:54 | NUR ---
SW left a voicemail message for pt's Homeless navigator Ibrahima Barrett to follow up regarding the independent living that pt. was going to go to upon discharge.
--- NOTE | 2018-09-14 10:00 | NUR ---
SHYAM received a call back from Ibrahima Barrett informing SHYAM that he will be coming by the hospital around 11AM to give pt. bus pass and route to get to the independent living pt. will be going to. SHYAM informed Ibrahima to let her know when he gets to [facility].
--- NOTE | 2018-09-14 11:25 | NUR ---
SW met with pt. bedside and gave him the following resources: [facility] Homeless Directory, mental health clinics such as [facility] [address] [place] [address] ;[facility] (Behavioral Health) [address]nd [place] [address] Main Number: ;[facility] [id number] [place] [address] ;[facility] [address] [place], [place] [id number] Healthcare Clinics for Homeless Patients [facility] [address], Vaccines and infectious disease resource [address] [place]. [place] Hours: M, T, Th, F 8:30AM-4:30PM Walk-ins allowed Provide medical screening and pharmacy [facility] [address] [place] [address] Vaccines and infectious diseases Hours M-F 8AM-3:30PM Walk-ins allowed Provide medical screening and pharmacy [facility] [address] [place] [address] Hours 8AM-4:30PM Walk-ins allowed Provide medical screening and pharmacy Alcohol and Drug Treatment Programs [facility] Substance Abuse Self-helpline ([facility]) Substance Abuse Contact number . Call the hotline and the induction machine operator will screen and link individual to an appropriate program. Must have Medi-monisha or be Med-monisha eligible. [facility] [address] [place] [address] [facility] [address] [place] [address] [facility] Program (Religion based) [address] [place] [address] (Six months program and need to work for 8 hrs per day while in treatment) [facility] (No insurance required) [address] [place] [address] [place] [id number] [facility] [address] Closed on Monday Open Monday through Monday 9 am -6 pm Monday 10am 5 pm Closed on Monday [facility] [phone] [address] [facility] [address] Prefer phone calls. They do allow walk-ins but prefer appointments.
--- NOTE | 2018-09-14 11:58 | NUR ---
SHYAM met with pt. and Ibrahima at bedside. Per Ibrahima pt. will be going to the Social security office located at [address] [place] [address] in [place] to filler picker his social security check. Once he picks up his check pt. to call shared housing senior linux administrator Phyllis to pick him up to go to his shared housing located at [address] [place] [address] in [place]. [facility] provided pt. with taxi voucher to go to [address] [place] [address] in [place]. Homeless Patient Waiver Form was signed by the pt. and placed in pt's chart. Pt. was provided with an egg sandwich and juice to take with him. Pt's WILVER Phillips and RADHA Martin were updated with pt's discharge plan. Homeless checklist completed by SHYAM.
--- NOTE | 2018-09-14 12:00 | NUR ---
DISCHARGE NOTE PT WAS D/C AT THIS TIME IN MEDICALLY STABLE CONDITION BACK HOME. IV AND ID BAND WERE REMOVED. ALL D/C PAPERWORK, EXITCARE, AND BELONG LIST WERE SIGNED, DISCUSSED, AND HANDED TO THE PATIENT. ALL BELONGINGS WERE TAKEN BY THE PATIENT. PT SKIN WAS NOTED TO BE DRY AND INTACT WITH NO WOUND DOCUMENTATION NOTED. HE WAS ABLE TO DISCUSS HIS PLANE OF CARE WITH THE FOOD CONSULTANT AND CLINICAL/[facility] NAVIGATOR AT THE BEDSIDE BEFORE HIS D/C. ALL NEEDS WERE ATTENDED TO DURING HIS STAY, HE WAS TAKEN DOWN BY WHEELCHAIR BY ME WHERE HE LEFT AT THIS TIME IN A TAXI.
== END 2018-09-14 12:05 | disposition home or self-care (01) | DRG 372 ==
LOC: ER 18:29 → MED 20:37
PROVIDERS: ADMIT Nurse Practitioner Acute Care; ATTEND Nurse Practitioner Acute Care
DX: A04.9 Bacterial intestinal infection, unspecified (principal); E87.1 Hypo-osmolality and hyponatremia; I42.9 Cardiomyopathy, unspecified; M94.0 Chondrocostal junction syndrome [Tietze]; I27.20 Pulmonary hypertension, unspecified; E78.5 Hyperlipidemia, unspecified; D63.8 Anemia in other chronic diseases classified elsewhere; D69.6 Thrombocytopenia, unspecified; F17.210 Nicotine dependence, cigarettes, uncomplicated; F20.9 Schizophrenia, unspecified; I25.10 Atherosclerotic heart disease of native coronary artery without angina pectoris; K21.9 Gastro-esophageal reflux disease without esophagitis; F31.9 Bipolar disorder, unspecified; Z91.14 Patient's other noncompliance with medication regimen; Z59.0 Homelessness; D17.79 Benign lipomatous neoplasm of other sites; E87.8 Other disorders of electrolyte and fluid balance, not elsewhere classified; I08.1 Rheumatic disorders of both mitral and tricuspid valves; I10 Essential (primary) hypertension
CPT/HCPCS: 36415; 71045-TC; 72193-TC; 80048-TC; 80061-TC; 80076-TC; 80305; 81000-TC; 82728-TC; 83540-TC; 83605-TC; 83735-TC; 83880; 84100-TC; 84484-TC; 85025-TC; 85730-TC; 93307-TC; A4216; G0378; G0480; J1200; J1956; J2270; J2405; J3490; J7030; J7040; J7050; Q9967

== ENCOUNTER 2018-12-09 17:20 | Emergency (ER) | payer MEDICAID, OTHER ==
[~2018-12-09] VITALS: Ht 195.6 cm; Wt 91.6 kg
[2018-12-09] MEDS ORDERED: NITROGLYCERIN 0.4 MG/TAB BOTTLE ONE (17:27)
[2018-12-09] MEDS ORDERED: NITROGLYCERIN 0.4 MG/TAB BOTTLE SL ONE (17:30)
--- NOTE | 2018-12-09 17:35 | NUR ---
YOSELYN BRASHER HUT C/O SHARP L SIDED CHEST PAIN X 4 DAYS. ADMITS METH USE WAS GIVEN ASP 325MG TANK INSPECTOR. ALSO C/O LOWER ABDOMEN/GROIN AREA, HX HERNIA. PATIENT A/OX4, BREATHING EVEN AND UNLABORED, NO SOB NOTED, PLACED ON THE MONITOR. NO S/SX OF DSITRESS NOTED. MD AT BEDSIDE.
[2018-12-09 17:36] LABS: BASOPHILS % (AUTO) 0.7 % (0.0-2.0); EOSINOPHILS % (AUTO) 0.6 % (0.0-6.0); HEMATOCRIT 37 % (39-51); HEMOGLOBIN 12.8 g/dL (13.5-17.5); LYMPHOCYTES # (AUTO) 0.9 /CMM (0.8-4.8); LYMPHOCYTES % (AUTO) 24.5 % (20.0-44.0); MEAN CORPUSCULAR HGB CONC 35 g/dl (31.0-36.0); MEAN CORPUSCULAR VOLUME 96 fL (80-96); MONOCYTES # (AUTO) 0.5 /CMM (0.1-1.30); MONOCYTES % (AUTO) 14.4 % (2.0-12.0); NEUTROPHILS # (AUTO) 2.2 /CMM (1.8-8.9); NEUTROPHILS % (AUTO) 59.8 % (43.0-81.0); PLATELET COUNT (AUTO) 193 /CMM (150-450); RED BLOOD CELL COUNT(AUTO) 3.86 MIL/uL (4.5-6.0); WHITE BLOOD COUNT (AUTO) 3.7 K/uL (4.3-11.0)
[2018-12-09 17:55] LABS: CALCIUM, SERUM 8.6 mg/dL (8.5-10.1); CARBON DIOXIDE 23 mmol/L (21-32); CHLORIDE 96 mmol/L (98-107); CREATININE 0.6 mg/dL (0.6-1.3); GLUCOSE 96 mg/dL (74-106); POTASSIUM 3.5 mmol/L (3.5-5.1); SODIUM SERUM 131 mmol/L (136-145); UREA NITROGEN, BLOOD 12 mg/dL (7-18)
[2018-12-09 18:02] LABS: ALANINE AMINOTRANSFERASE 17 U/L (12-78); ALBUMIN 3.7 g/dL (3.4-5.0); ALKALINE PHOSPHATASE 83 U/L (46-116); ASPARTATE AMINOTRANSFERASE 21 U/L (15-37); B-TYPE NATRIURETIC PEPTIDE 208 PG/ML (0-125); BILIRUBIN,DIRECT 0.2 mg/dL (0.0-0.2); BILIRUBIN,TOTAL 0.7 mg/dL (0.2-1.0); TOTAL PROTEIN, SERUM 7.2 g/dL (6.4-8.2)
--- NOTE | 2018-12-09 18:54 | NUR ---
PIV REMOVED, Patient a/ox4, denies pain or discomfort at this time. Tap card provided. Patient given written and verbal discharge instructions. Patient verbalizes understanding of instructions. Patient is ambulatory with steady gait. Refuses offer of skilled nursing placement. Patient given list of available shelters in surrounding area.
[2018-12-09 18:56] VITALS: BP 143/77
== END 2018-12-09 18:58 | disposition home or self-care (01) ==
LOC: ER 17:24
DX: R07.89 Other chest pain (principal); I11.0 Hypertensive heart disease with heart failure; I50.9 Heart failure, unspecified; F15.10 Other stimulant abuse, uncomplicated; F10.10 Alcohol abuse, uncomplicated; F20.9 Schizophrenia, unspecified; I34.0 Nonrheumatic mitral (valve) insufficiency; F17.200 Nicotine dependence, unspecified, uncomplicated; Y90.7 Blood alcohol level of 200-239 mg/100 ml; Z88.5 Allergy status to narcotic agent; Z88.8 Allergy status to other drugs, medicaments and biological substances; Z79.82 Long term (current) use of aspirin
CPT/HCPCS: 36415; 71045-TC; 80048-TC; 80076-TC; 80305; 83880; 84484-TC; 85025-TC; 85730-TC; G0480

== ENCOUNTER 2019-02-20 18:03 | Emergency (ER) | payer MEDICAID, OTHER ==
[~2019-02-20] VITALS: Ht 193 cm; Wt 93.9 kg
[~2019-02-20 18:03] MED LIST changes: +LISI-608 PO; -LISI5TAB45 PO
[2019-02-20] MEDS ORDERED: HYDROCODONE/APAP 5/325MG 1 EACH TABLET ONE (18:28)
[2019-02-20 18:30] LABS: BASOPHILS % (AUTO) 1.2 % (0.0-2.0); EOSINOPHILS % (AUTO) 2.2 % (0.0-6.0); HEMATOCRIT 37 % (39-51); HEMOGLOBIN 12.6 g/dL (13.5-17.5); LYMPHOCYTES # (AUTO) 0.9 /CMM (0.8-4.8); LYMPHOCYTES % (AUTO) 24.1 % (20.0-44.0); MEAN CORPUSCULAR HGB CONC 34 g/dl (31.0-36.0); MEAN CORPUSCULAR VOLUME 98 fL (80-96); MONOCYTES # (AUTO) 0.5 /CMM (0.1-1.30); MONOCYTES % (AUTO) 12.5 % (2.0-12.0); NEUTROPHILS # (AUTO) 2.3 /CMM (1.8-8.9); PLATELET COUNT (AUTO) 172 /CMM (150-450); RED BLOOD CELL COUNT(AUTO) 3.73 MIL/uL (4.5-6.0); WHITE BLOOD COUNT (AUTO) 3.9 K/uL (4.3-11.0)
[2019-02-20] MEDS ORDERED: HYDROCODONE/APAP 5/325MG 1 EACH TABLET PO ONE (18:30)
--- NOTE | 2019-02-20 18:39 | NUR ---
[id number], PER REPORT CHEST PAIN X 4 DAYS. BG [employer] PT IS VERBALLY RESPONSIVE C/O GENERALIZED BODY ACHES. PT AAOX4, VSS. DENIES SOB, DIZZINESS, N/V/D, WEAKNESS @ THIS TIME. PT SEEN & EVAL'D BY DR. CAR. PLACED ON DANDY OPERATOR, SR, NO ECTOPY NOTED. MEDICATED FOR PAIN & WILL CONT TO MONITOR.
[2019-02-20 18:40] LABS: CALCIUM, SERUM 8.9 mg/dL (8.5-10.1); CARBON DIOXIDE 29 mmol/L (21-32); CHLORIDE 102 mmol/L (98-107); CREATININE 0.8 mg/dL (0.6-1.3); GLUCOSE 107 mg/dL (74-106); POTASSIUM 3.9 mmol/L (3.5-5.1); SODIUM SERUM 139 mmol/L (136-145); UREA NITROGEN, BLOOD 18 mg/dL (7-18)
--- NOTE | 2019-02-20 20:10 | NUR ---
Patient discharged to home in stable condition. Written and verbal after care instructions given. Patient verbalizes understanding of instruction. IV removed. Catheter intact and site benign. Pressure and 4x4 applied to site. No bleeding noted.
[2019-02-20 21:59] VITALS: BP 124/78
== END 2019-02-20 20:10 | disposition home or self-care (01) ==
LOC: ER 18:08
DX: G89.29 Other chronic pain (principal); I11.0 Hypertensive heart disease with heart failure; I50.9 Heart failure, unspecified; F17.200 Nicotine dependence, unspecified, uncomplicated; Z76.5 Malingerer [conscious simulation]; Z88.6 Allergy status to analgesic agent; Z88.8 Allergy status to other drugs, medicaments and biological substances; Z79.899 Other long term (current) drug therapy
CPT/HCPCS: 36415; 71045-TC; 80048-TC; 84484-TC; 85025-TC

== ENCOUNTER 2019-04-06 08:51 | Emergency (ER) | payer MEDICAID ==
[~2019-04-06] VITALS: Ht 182.9 cm; Wt 91.6 kg
--- NOTE | 2019-04-06 09:01 | NUR ---
PT BIBA RA 860 Homeless "Abdominal Pain/nausea/vomiting started last night" PT IS AAOX3, NOT IN RESPIRATORY DISTRESS, HOOKED TO MONITOR, KEPT RESTED AND COMFORTABLE, WILL CONTINUE TO MONITOR.
--- NOTE | 2019-04-06 09:07 | NUR ---
SEEN AND EXAMINED BY ,
[2019-04-06] MEDS ORDERED: ONDANSETRON 4 MG TAB.RAPDIS ONE (09:10)
[2019-04-06] MEDS ORDERED: HYDROCODONE/APAP 10/325MG 1 EA TABLET ONE (09:10)
--- NOTE | 2019-04-06 09:22 | NUR ---
ER PHLEB AT BEDSIDE FOR BLOOD DRAW.
[2019-04-06] MEDS ORDERED: HYDROCODONE/APAP 10/325MG 1 EA TABLET PO ONE (09:30)
[2019-04-06] MEDS ORDERED: ONDANSETRON 4 MG TAB.RAPDIS SL ONE (09:30)
[2019-04-06 09:34] LABS: BASOPHILS % (AUTO) 0.5 % (0.0-2.0); EOSINOPHILS % (AUTO) 1.5 % (0.0-6.0); HEMATOCRIT 38 % (39-51); HEMOGLOBIN 13.5 g/dL (13.5-17.5); LYMPHOCYTES # (AUTO) 0.6 /CMM (0.8-4.8); LYMPHOCYTES % (AUTO) 13.5 % (20.0-44.0); MEAN CORPUSCULAR HGB CONC 35 g/dl (31.0-36.0); MEAN CORPUSCULAR VOLUME 96 fL (80-96); MONOCYTES # (AUTO) 1.1 /CMM (0.1-1.30); MONOCYTES % (AUTO) 23.8 % (2.0-12.0); NEUTROPHILS # (AUTO) 2.8 /CMM (1.8-8.9); NEUTROPHILS % (AUTO) 60.7 % (43.0-81.0); PLATELET COUNT (AUTO) 174 /CMM (150-450); RED BLOOD CELL COUNT(AUTO) 3.98 MIL/uL (4.5-6.0); WHITE BLOOD COUNT (AUTO) 4.6 K/uL (4.3-11.0)
[2019-04-06 09:52] LABS: CALCIUM, SERUM 9.1 mg/dL (8.5-10.1)
[2019-04-06 09:58] LABS: ALBUMIN 3.6 g/dL (3.4-5.0); BILIRUBIN,DIRECT 0.2 mg/dL (0.0-0.2); BILIRUBIN,TOTAL 0.6 mg/dL (0.2-1.0); TOTAL PROTEIN, SERUM 7.4 g/dL (6.4-8.2)
[2019-04-06 10:49] LABS: LYMPHOCYTES % (MANUAL) 8 % (16-48); MONOCYTES % (MANUAL) 20 % (0-11.0); NEUTROPHILS % (MANUAL) 72 (42-76)
[2019-04-06 11:29] VITALS: BP 124/78
--- NOTE | 2019-04-06 11:29 | NUR ---
Patient discharged to home in stable condition. Written and verbal after care instructions given. Patient verbalizes understanding of instruction.
== END 2019-04-06 11:32 | disposition home or self-care (01) ==
LOC: ER 08:52
DX: R10.84 Generalized abdominal pain (principal); I10 Essential (primary) hypertension; F10.10 Alcohol abuse, uncomplicated; F17.200 Nicotine dependence, unspecified, uncomplicated; Y90.9 Presence of alcohol in blood, level not specified; Z88.5 Allergy status to narcotic agent; Z88.8 Allergy status to other drugs, medicaments and biological substances; Z59.0 Homelessness; Z79.82 Long term (current) use of aspirin
CPT/HCPCS: 36415; 80048; 80076; 83690; 85025; 99283; Q0162